=== PATIENT | female | born 1935 | race Caucasian/White ===

== ENCOUNTER 2016-12-13 10:30 | Inpatient (IN) | payer MEDICARE ==
--- NOTE | 2016-12-13 10:33 | EDM.PDOC ---
ED HPI GENERAL MEDICAL PROBLEM - General Chief Complaint: Respiratory Problem Stated Complaint: NOT FEELING WELL Time Seen by Provider: 12/13/16 10:31 Source of Information: Reports: Patient, EMS, Old Records, RN, RN Notes Reviewed History Limitations: Reports: No Limitations - History of Present Illness INITIAL COMMENTS - FREE TEXT/NARRATIVE: Arrives from home by ambulance with c/o shortness of breath and cough which has been worsening for the past few days. Denies fever or chills, chest pain, or edema. Pt reports that she has been using home oxygen and nebulizer tx's as prescribed, but has become too weak to walk across the room without shortness of breath. Onset: Gradual Duration: Day(s): (3-4) Location: Reports: Chest Severity: Severe Improves with: Reports: None Worsens with: Reports: None Associated Symptoms: Reports: No Other Symptoms Treatments [employer]ACHINE: Reports: Breathing Treatments, Oxygen - Related Data Allergies Allergy/AdvReac Type Severity Reaction Status Date / Time No Known Allergies Allergy Verified 08/12/15 11:06 Home Meds: Home Meds Albuterol/Ipratropium [DuoNeb 3.0-0.5 MG/3 ML] 3 ml NEB QID 08/12/15 [History] Lutein/Minerals/Vit A,C & E [Ocuvite] 1 tab PO DAILY 08/12/15 [History] Multivits,Ca,Minerals/Iron/FA [One-A-Day Women's] 1 tab PO DAILY 08/12/15 [ History] Tamoxifen [Nolvadex] 20 mg PO DAILY 08/12/15 [History] predniSONE [Prednisone] 2.5 mg PO DAILY 08/12/15 [History] predniSONE [Prednisone] 10 mg PO DAILY #21 tablet 08/16/15 [Rx] Past Medical History HEENT History: Reports: Cataract, Impaired Vision Other HEENT History: wears glasses Cardiovascular History: Reports: None Respiratory History: Reports: COPD, SOB Other Respiratory History: wears O2 all the time Gastrointestinal History: Reports: None Genitourinary History: Reports: None 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 Musculoskeletal History: Reports: None Neurological History: Reports: None Psychiatric History: Reports: None Endocrine/Metabolic History: Reports: None Hematologic History: Reports: None Immunologic History: Reports: None Oncologic (Cancer) History: Reports: Breast Other Oncologic History: left breast Dermatologic History: Reports: None - Infectious Disease History Infectious Disease History: Reports: Chicken Pox, Measles, Mumps - Past Surgical History Female Surgical History: Reports: Breast Biopsy Social & Family History - Family History Cardiac: Reports: CAD Endocrine/Metabolic: Reports: Diabetes, type II - Tobacco Use Smoking Status *Q: Former Smoker Years of Tobacco use: 30 Packs/Tins Daily: 1 Used Tobacco, but Quit: Yes Month Tobacco Last Used: april Second Hand Smoke Exposure: No - Recreational Drug Use Recreational Drug Use: No - Living Situation & Occupation Living situation: Reports: , Alone Occupation: Retired ED ROS GENERAL - Review of Systems Review Of Systems: ROS reveals no pertinent complaints other than HPI. ED EXAM, GENERAL - Physical Exam Exam: See Below Exam Limited By: No Limitations General Appearance: Alert Eye Exam: Bilateral Eye: Normal Inspection Ears: Hearing Grossly Normal Nose: Normal Inspection Throat/Mouth: Normal Voice, No Airway Compromise Head: Atraumatic, Normocephalic Neck: Normal Inspection, Supple, Non-Tender, Full Range of Motion Respiratory/Chest: No Respiratory Distress, No Accessory Muscle Use, Decreased Breath Sounds, Crackles, Wheezing Cardiovascular: Regular Rate, Rhythm, No Edema, No Murmur, Tachycardia GI/Abdominal: Normal Bowel Sounds, Soft, Non-Tender, No Distention Back Exam: Normal Inspection Extremities: Normal Inspection, Normal Range of Motion, Non-Tender, Normal Capillary Refill, No Pedal Edema Neurological: Alert, Oriented, Normal Cognition, No Motor/Sensory Deficits Psychiatric: Normal Affect, Normal Mood Skin Exam: Warm, Dry, Intact, Normal Color, No Rash EKG INTERPRETATION EKG Date: 12/13/16 Time: 10:34 Rhythm: Other (Sinus tach) Rate (Beats/Min): 112 [place]: Normal P-Wave: Present QRS: Normal ST-T: Depressed (minimal depression in lateral leads) QT: Normal Comparison: No Change (compared to 08/12/15.) Course - Vital Signs Last Recorded V/S: Last Vital Signs Temp 36.8 C 12/13/16 10:36 Pulse 110 H 12/13/16 10:36 Resp 20 12/13/16 10:36 BP 156/48 H 12/13/16 10:36 Pulse Ox 93 L 12/13/16 10:36 - Orders/Labs/Meds Orders: Active Orders 24 hr Category Date Time Status EKG 12 Lead [EKG Documentation Completion] [RC] STAT Care 12/13/16 10:39 Active Peripheral IV Care [RC] . DIRECTED Care 12/13/16 10:40 Active RT Aerosol Therapy [RC] ASDIRECTED Care 12/13/16 10:42 Active Chest 2V [CR] Stat Exams 12/13/16 10:40 Taken CULTURE BLOOD [BC] Stat Lab 12/13/16 10:58 Received CULTURE BLOOD [BC] Stat Lab 12/13/16 11:14 Results UA W/MICROSCOPIC [URIN] Stat Lab 12/13/16 10:39 Uncollected Blood Culture x2 Reflex Set [OM.PC] Stat Oth 12/13/16 10:39 Ordered Peripheral IV Insertion Adult [OM.PC] Stat Oth 12/13/16 10:39 Ordered RT Supplemental Oxygen Titration [RESPCARE] Stat Oth 12/13/16 10:39 Active Labs: Laboratory Tests 12/13/16 12/13/16 12/13/16 Range/Units 10:58 11:14 11:14 WBC 9.9 (5.0-10.0) 10^3/uL RBC 4.15 L (4.2-5.4) 10^6/uL Hgb 13.2 (12.0-16.0) g/dL Hct 40.6 (37.0-47.0) % MCV 97.8 (80-100) fL MCH 31.8 (27.0-34.0) pg MCHC 32.5 L (33.0-35.0) g/dL Plt Count 254 (150-450) 10^3/uL Neut % (Auto) 61.9 (42.2-75.2) % Lymph % (Auto) 23.5 (20.5-50.1) % [place] % (Auto) 10.8 H (2-8) % Eos % (Auto) 3.5 H (1.0-3.0) % Baso % (Auto) 0.3 (0.0-1.0) % Sodium 138 (135-145) mmol/L Potassium 4.3 (3.6-5.0) mmol/L Chloride 97 L (101-111) mmol/L Carbon Dioxide 29.0 (21.0-31.0) mmol/L Anion Gap 16.3 BUN 11 (7-18) mg/dL Creatinine 0.7 (0.6-1.3) mg/dL Est Cr Clr Drug Dosing 48.37 mL/min Estimated GFR (MDRD) > 60 BUN/Creatinine Ratio 15.71 Glucose 125 H (74-105) mg/dL Lactic Acid 1.1 (0.5-2.2) mmol/L Calcium 8.7 (8.4-10.2) mg/dl Total Bilirubin 0.4 (0.2-1.0) mg/dL AST 27 (10-42) IU/L ALT 12 (10-60) IU/L Alkaline Phosphatase 70 (42-121) IU/L Troponin I 0.02 (0.00-0.02) ng/ml B-Natriuretic Peptide 43 (0-100) pg/ml Total Protein 7.3 (6.7-8.2) g/dl Albumin 3.9 (3.2-5.5) g/dl Globulin 3.4 Albumin/Globulin Ratio 1.15 Meds: Medications Discontinued Medications Generic Name Dose Route Start Last Admin Trade Name Freq PRN Reason Stop Dose Admin Albuterol/Ipratropium 3 ml 12/13/16 10:42 12/13/16 10:52 Duoneb 3.0-0.5 Mg/3 Ml NEB 12/13/16 10:43 3 ml ONETIME ONE Administration Methylprednisolone Sodium Succinate 125 mg 12/13/16 10:42 12/13/16 10:47 Solu-Medrol IVPUSH 12/13/16 10:43 125 mg ONETIME ONE Administration Ondansetron HCl 4 mg 12/13/16 10:56 12/13/16 11:01 Zofran IV 12/13/16 10:57 4 mg ONETIME ONE Administration Sodium Chloride 10 ml 12/13/16 10:38 12/13/16 10:48 Saline Flush FLUSH 10 ml ASDIRECTED PRN Administration Keep Vein Open - Radiology Interpretation Free Text/Narrative:: CXR: no infiltrates, large lung volumes, flattened diaphragms; see Rad. report. Departure - Departure Time of Disposition: 12:14 (admit to Dr. Gregory) Disposition: Admitted As Inpatient 67 Condition: Serious Clinical Impression: Acute exacerbation of chronic obstructive pulmonary disease (COPD), Hypoxia - Discharge Information Forms: ED Department Discharge - My Orders Last 24 Hours: My Active Orders 12/13/16 10:39 EKG 12 Lead [EKG Documentation Completion] [RC] STAT UA W/MICROSCOPIC [URIN] Stat Blood Culture x2 Reflex Set [OM.PC] Stat Peripheral IV Insertion Adult [OM.PC] Stat RT Supplemental Oxygen Titration [RESPCARE] Stat 12/13/16 10:40 Peripheral IV Care [RC] . DIRECTED Chest 2V [CR] Stat 12/13/16 10:42 RT Aerosol Therapy [RC] ASDIRECTED 12/13/16 10:58 CULTURE BLOOD [BC] Stat 12/13/16 11:14 CULTURE BLOOD [BC] Stat - Assessment/Plan Last 24 Hours: My Active Orders 12/13/16 10:39 EKG 12 Lead [EKG Documentation Completion] [RC] STAT UA W/MICROSCOPIC [URIN] Stat Blood Culture x2 Reflex Set [OM.PC] Stat Peripheral IV Insertion Adult [OM.PC] Stat RT Supplemental Oxygen Titration [RESPCARE] Stat 12/13/16 10:40 Peripheral IV Care [RC] . DIRECTED Chest 2V [CR] Stat 12/13/16 10:42 RT Aerosol Therapy [RC] ASDIRECTED 12/13/16 10:58 CULTURE BLOOD [BC] Stat 12/13/16 11:14 CULTURE BLOOD [BC] Stat
[2016-12-13] MEDS ORDERED: methylPREDNISolone Sodium Succinate 125 MG/2 ML SDV IVPUSH ONE (10:42)
[2016-12-13] MEDS ORDERED: Albuterol/Ipratropium 3.0-0.5 MG/3 ML Neb Soln NEB ONE (10:42)
[2016-12-13] MEDS: Sodium Chloride 0.9% 10 ML Syringe FLUSH PRN ×3 (10:48→15:46)
[2016-12-13] MEDS ORDERED: Ondansetron 4 MG/2 ML SDV IV ONE (10:56)
[2016-12-13 11:40] LABS: CHLORIDE,CL 97 mmol/L (101-111); SODIUM,NA 138 mmol/L (135-145)
[2016-12-13] MEDS ORDERED: Albuterol 0.083% 2.5 MG/3 ML Neb Soln NEB PRN (12:40)
[2016-12-13] MEDS ORDERED: Ondansetron 4 MG Tab.DIS PO PRN (12:42)
[2016-12-13] MEDS ORDERED: Acetaminophen 325 MG Tab PO PRN (12:42)
[2016-12-13] MEDS ORDERED: Docusate Sodium 100 MG Cap PO PRN (12:42)
[2016-12-13] MEDS ORDERED: Polyethylene Glycol 3350 Powder 17 GM Packet PO PRN (12:42)
[2016-12-13] MEDS ORDERED: Sodium Chloride 0.9% 10 ML Syringe FLUSH PRN (12:42)
--- NOTE | 2016-12-13 13:00 | PCM.HP ---
H&P History of Present Illness - General Date of Service: 12/13/16 Admit Problem/Dx: Admission Diagnosis/Problem Admission Diagnosis/Problem Shortness of breath - History of Present Illness Initial Comments - Free Text/Narative: The patient is an 81-year-old lady who has a history of COPD with home oxygen dependency. She has been using to 2l/m nasal cannula oxygen day and night. The patient has a history of breast cancer for which she is receiving Treatment with Dr. Mcpherson. The patient has been feeling increasing gas shortness of breath in the past 2 weeks, shortness of breath is moderate to severe, worse with activity, better with rest. There is associated to cough which mostly chronic. No apparent fever no sputum production. She has air-conditioner in her living room but not in her bedroom. She has no associated leg swelling, no chest pain. - Related Data Allergies/Adverse Reactions: Allergies Allergy/AdvReac Type Severity Reaction Status Date / Time No Known Allergies Allergy Verified 12/13/16 12:46 Home Medications: Home Meds Albuterol/Ipratropium [DuoNeb 3.0-0.5 MG/3 ML] 3 ml NEB QID 08/12/15 [History] Lutein/Minerals/Vit A,C & E [Ocuvite] 1 tab PO DAILY 08/12/15 [History] predniSONE [Prednisone] 2.5 mg PO DAILY 08/12/15 [History] Past Medical History HEENT History: Reports: Cataract, Impaired Vision Other HEENT History: wears glasses Cardiovascular History: Reports: SOB on Exertion Respiratory History: Reports: COPD, Pneumonia, Recurrent, SOB Other Respiratory History: wears O2 all the time Gastrointestinal History: Reports: None Genitourinary History: Reports: None 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: Musculoskeletal History: Reports: None Neurological History: Reports: None Psychiatric History: Reports: None Endocrine/Metabolic History: Reports: None Hematologic History: Reports: Anemia Immunologic History: Reports: None Oncologic (Cancer) History: Reports: Breast Other Oncologic History: left breast Dermatologic History: Reports: None - Infectious Disease History Infectious Disease History: Reports: Chicken Pox, Measles, Mumps - Past Surgical History Head Surgeries/Procedures: Reports: None HEENT Surgical History: Reports: Tonsillectomy Female Surgical History: Reports: Breast Biopsy Social & Family History - Family History Family Medical History: Noncontributory Cardiac: Reports: CAD Endocrine/Metabolic: Reports: Diabetes, type II - Tobacco Use Smoking Status *Q: Former Smoker Years of Tobacco use: 30 Packs/Tins Daily: 1 Used Tobacco, but Quit: Yes Month Tobacco Last Used: april Second Hand Smoke Exposure: No - Caffeine Use Caffeine Use: Reports: Coffee - Recreational Drug Use Recreational Drug Use: No - Living Situation & Occupation Living situation: Reports: , Alone Occupation: Retired H&P Review of Systems - Review of Systems: Review Of Systems: See Below General: Denies: Fever Pulmonary: Reports: Shortness of Breath, Cough. Denies: Wheezing, Pleuritic Chest Pain, Sputum Cardiovascular: Denies: Chest Pain Gastrointestinal: Denies: Abdominal Pain Genitourinary: Denies: Dysuria Exam - Exam Exam: See Below - Vital Signs Vital Signs: Last Vital Signs Temp 36.6 C 12/13/16 12:34 Pulse 119 H 12/13/16 12:34 Resp 20 12/13/16 12:34 BP 145/43 H 12/13/16 12:34 Pulse Ox 96 12/13/16 12:42 Weight: 55.338 kg - Exam Quality Assessment: Supplemental Oxygen (4 L/m via nasal cannula) General: Alert, Oriented Neck: Supple Lungs: Normal Respiratory Effort, Decreased Breath Sounds. No: Rhonchi, Wheezing Cardiovascular: Regular Rate, Regular Rhythm Extremities: No Pedal Edema Skin: Warm, Dry Neuro Extensive - Mental Status: Alert, Oriented x3, Normal Mood/Affect Psychiatric: Alert, Normal Affect, Normal Mood - Patient Data Result Diagrams: 12/13/16 11:14 12/13/16 10:58 Imaging Impressions Last 24 hrs: Chest x-ray per my reading shows no apparent infiltrate or mass. *Q Meaningful Use (ADM) - VTE *Q VTE Criteria *Q: - Stroke *Q Stroke Criteria *Q: - AMI *Q AMI Criteria *Q: - Problem List (1) Acute exacerbation of chronic obstructive pulmonary disease (COPD) SNOMED Code(s): 078890479 ICD Code: J44.1 - CHRONIC OBSTRUCTIVE PULMONARY DISEASE W (ACUTE) EXACERBATION Status: Acute Current Visit: Yes (2) Hypoxia SNOMED Code(s): 400615811, 814397101 ICD Code: R09.02 - HYPOXEMIA Status: Acute Current Visit: Yes Problem List Initiated/Reviewed/Updated: Yes Orders Last 24hrs: Active Orders 24 hr Category Date Time Status Patient Status [ADT] Routine ADT 12/13/16 12:42 Ordered Antiembolic Devices [RC] PER UNIT ROUTINE Care 12/13/16 12:44 Ordered Oxygen Therapy [RC] PRN Care 12/13/16 12:42 Ordered RT Aerosol Therapy [RC] ASDIRECTED Care 12/13/16 12:39 Ordered RT Aerosol Therapy [RC] ASDIRECTED Care 12/13/16 12:40 Ordered Up With Assistance [RC] ASDIRECTED Care 12/13/16 12:42 Ordered VTE/DVT Education [RC] PER UNIT ROUTINE Care 12/13/16 12:42 Ordered Vital Signs [RC] Q4H Care 12/13/16 12:42 Ordered PT Evaluation and Treatment [CONS] Routine Cons 12/13/16 12:40 Ordered Regular Diet [DIET] Diet 12/13/16 Dinner Ordered Acetaminophen [Tylenol] Med 12/13/16 12:42 Ordered 650 mg PO Q4H PRN Albuterol [Proventil Neb Soln] Med 12/13/16 12:40 Ordered 2.5 mg NEB Q4HRRT PRN Albuterol/Ipratropium [DuoNeb 3.0-0.5 MG/3 ML] Med 12/13/16 13:00 Ordered 3 ml NEB QID Azithromycin [Zithromax] 500 mg Med 12/13/16 12:45 Ordered Sodium Chloride 0.9% [Normal Saline] 250 ml IV Q24H Budesonide [Pulmicort] Med 12/13/16 18:00 Ordered 0.5 mg NEB BIDRT Docusate Sodium [Colace] Med 12/13/16 12:42 Ordered 100 mg PO BID PRN Heparin Sodium Med 12/13/16 14:00 Ordered 5,000 units SUBCUT Q8HR Lutein/Minerals/Vit A,C & E [I-Vilma] Med 12/14/16 09:00 Ordered 1 tab PO DAILY Ondansetron [Zofran ODT] Med 12/13/16 12:42 Ordered 4 mg PO Q6H PRN Polyethylene Glycol 3350 [MiraLAX] Med 12/13/16 12:42 Ordered 17 gm PO DAILY PRN Sodium Chloride 0.9% [Saline Flush] Med 12/13/16 12:42 Ordered 10 ml FLUSH ASDIRECTED PRN Tamoxifen [Nolvadex] Med 12/14/16 09:00 Ordered 20 mg PO DAILY Zolpidem [Ambien] Med 12/13/16 12:42 Ordered 5 mg PO BEDTIME PRN methylPREDNISolone Sod Succ [Solu-MEDROL] Med 12/13/16 16:00 Ordered 40 mg IVPUSH Q8H Saline Lock Insert [OM.PC] Routine Oth 12/13/16 12:42 Ordered Sequential Compression Device [OM.PC] Per Unit Routine Oth 12/13/16 12:43 Ordered Resuscitation Status Routine Resus Stat 12/13/16 12:42 Ordered Medication Orders Acetaminophen (Tylenol) 650 mg PO Q4H PRN PRN Reason: Pain (Mild 1-3)/fever Albuterol (Proventil Neb Soln) 2.5 mg NEB Q4HRRT PRN PRN Reason: sob Albuterol/Ipratropium (Duoneb 3.0-0.5 Mg/3 Ml) 3 ml NEB QID RADHA Budesonide (Pulmicort) 0.5 mg NEB BIDRT RADHA Docusate Sodium (Colace) 100 mg PO BID PRN PRN Reason: Constipation Heparin Sodium (Porcine) (Heparin Sodium) 5,000 units SUBCUT Q8HR RADHA Azithromycin 500 mg/ Sodium (Chloride) 250 mls @ 250 mls/hr IV Q24H RADHA Methylprednisolone Sodium Succinate (Solu-Medrol) 40 mg IVPUSH Q8H RADHA Multivitamins/Minerals (I-Vilma) each PO DAILY RADHA Ondansetron HCl (Zofran Odt) 4 mg PO Q6H PRN PRN Reason: nausea, able to take PO Polyethylene Glycol (Miralax) 17 gm PO DAILY PRN PRN Reason: Constipation Sodium Chloride (Saline Flush) 10 ml FLUSH ASDIRECTED PRN PRN Reason: Keep Vein Open Last Admin: 12/13/16 10:48 Dose: 10 ml Sodium Chloride (Saline Flush) 10 ml FLUSH ASDIRECTED PRN PRN Reason: Keep Vein Open Tamoxifen Citrate (Nolvadex) 20 mg PO DAILY RADHA Zolpidem Tartrate (Ambien) 5 mg PO BEDTIME PRN PRN Reason: Sleep Assessment/Plan Comment:: Shortness of breath Increasing, decreased activity tolerance This is most likely due to the patient's COPD This might relate to natural progression of the COPD, possible exacerbating factors of bronchitis We'll supplement oxygen as needed, she might need higher oxygen dose at home. Will treat with IV systemic steroids Start azithromycin for a possible bronchitis. Will add inhaled steroid For now continue frequent DuoNeb nebulizer, try to switch to longer acting versions later If no significant improvement consider CT of the chest to evaluate for metastatic lesions from breast cancer.
--- NOTE | 2016-12-13 13:02 | CR ---
Clinical history: 81-year-old female dyspnea and a cough. Interpretation: Chronic abnormally coarse interstitial pattern and some peribronchial "cuffing" this patient with la rge hiatus hernia incarcerated in the lower middle mediastinum and left lower lobe atelectasis. Normal cardiac silhouette without alveolar edema or dependent new pleural effusion when compared to 12 August 2015 exam. No new lung mass, hilar lymphadenopathy or atelectasis/collapse but suggestion of possible developin g left perihilar pneumonitis. Clinical? Chronic hypertrophic arthritic changes osteopenic spine. Course aortic valvular calcifications. CONCLUSION: Hiatus hernia. Chronic interstitial pattern and possible developing left perihilar pneum onia.
[2016-12-13] MEDS: Heparin Sodium 5,000 Units/ML Vial SUBCUT SCH ×2 (13:33→21:41)
[2016-12-13] MEDS: Azithromycin 500 MG in Sodium Chloride 0.9% 250 ML IV SCH (13:47)
[2016-12-13] MEDS: methylPREDNISolone Sodium Succinate 40 MG/1 ML SDV IVPUSH SCH (15:46)
[2016-12-13] MEDS: Albuterol/Ipratropium 3.0-0.5 MG/3 ML Neb Soln NEB SCH ×2 (16:43→21:40)
[2016-12-13] MEDS: Budesonide 0.5 MG/2 ML Neb Susp NEB SCH (17:00)
[2016-12-14] MEDS: methylPREDNISolone Sodium Succinate 40 MG/1 ML SDV IVPUSH SCH ×4 (00:41→23:59)
[2016-12-14] MEDS: Sodium Chloride 0.9% 10 ML Syringe FLUSH PRN ×2 (00:42→23:59)
[2016-12-14] MEDS: Heparin Sodium 5,000 Units/ML Vial SUBCUT SCH ×3 (06:27→21:35)
[2016-12-14] MEDS: Albuterol/Ipratropium 3.0-0.5 MG/3 ML Neb Soln NEB SCH ×4 (07:15→21:32)
[2016-12-14] MEDS: Budesonide 0.5 MG/2 ML Neb Susp NEB SCH ×2 (07:15→17:58)
[2016-12-14] MEDS: Tamoxifen 10 MG Tab PO SCH (09:31)
[2016-12-14] MEDS: Lutein/Minerals/Vit A,C & E Tab PO SCH (09:31)
--- NOTE | 2016-12-14 11:22 | PCM.PN ---
- General Info Date of Service: 12/14/16 Admission Dx/Problem (Free Text): Admission Diagnosis/Problem Admission Diagnosis/Problem Shortness of breath Subjective Update: Feeling better, still shortness of breath but she feels that the nebulizers are helping. She is on 2 L/m nasal cannula oxygen at home, she has been on 3 here. She has cough, no associated sputum. No associated fever. No chest pain. - Review of Systems General: Reports: Weakness. Denies: Fever Pulmonary: Reports: Shortness of Breath Cardiovascular: Denies: Chest Pain Gastrointestinal: Denies: Abdominal Pain Genitourinary: Denies: Dysuria - Patient Data Vitals - Most Recent: Last Vital Signs Temp 36.4 C 12/14/16 11:00 Pulse 105 H 12/14/16 11:00 Resp 20 12/14/16 11:00 BP 145/51 H 12/14/16 11:00 Pulse Ox 92 L 12/14/16 11:00 Weight - Most Recent: 55.338 kg I&O - Last 24 Hours: Intake & Output 12/13/16 12/14/16 12/14/16 22:59 06:59 14:59 Intake Total 210 300 Output Total 100 Balance 210 200 Lab Results Last 24 Hours: Laboratory Results - last 24 hr 12/13/16 Range/Units 14:10 Urine Color Yellow (YELLOW) Urine Appearance Cloudy (CLEAR) Urine pH 6.5 (5.0-9.0) Ur Specific Purcell 1.015 (1.005-1.030) Urine Protein 30 H (NEGATIVE) Urine Glucose (UA) Negative (NEGATIVE) Urine Ketones 15 H (NEGATIVE) Urine Occult Blood Negative (NEGATIVE) Urine Nitrite Negative (NEGATIVE) Urine Bilirubin Negative (NEGATIVE) Urine Urobilinogen 0.2 (0.2-1.0) mg/dL Ur Leukocyte Esterase Large H (NEGATIVE) Urine RBC 0-5 /HPF Urine WBC 10-20 H (0-5/HPF) /HPF Ur Epithelial Cells Moderate H /HPF Urine Bacteria Rare (0-FEW/HPF) /HPF Urine Mucus Moderate H /LPF Med Orders - Current: Current Medications Acetaminophen (Tylenol) 650 mg PO Q4H PRN PRN Reason: Pain (Mild 1-3)/fever Albuterol (Proventil Neb Soln) 2.5 mg NEB Q4HRRT PRN PRN Reason: sob Albuterol/Ipratropium (Duoneb 3.0-0.5 Mg/3 Ml) 3 ml NEB QIDRT [facility] Last Admin: 12/14/16 07:15 Dose: 3 ml Budesonide (Pulmicort) 0.5 mg NEB BIDRT [facility] Last Admin: 12/14/16 07:15 Dose: 0.5 mg Docusate Sodium (Colace) 100 mg PO BID PRN PRN Reason: Constipation Heparin Sodium (Porcine) (Heparin Sodium) 5,000 units SUBCUT Q8HR [facility] Last Admin: 12/14/16 06:27 Dose: 5,000 units Azithromycin 500 mg/ Sodium (Chloride) 250 mls @ 250 mls/hr IV Q24H [facility] Last Admin: 12/13/16 13:47 Dose: 250 mls/hr Methylprednisolone Sodium Succinate (Solu-Medrol) 40 mg IVPUSH Q8H [facility] Last Admin: 12/14/16 09:31 Dose: 40 mg Multivitamins/Minerals (I-Vilma) 1 each PO DAILY [facility] Last Admin: 12/14/16 09:31 Dose: 1 each Ondansetron HCl (Zofran Odt) 4 mg PO Q6H PRN PRN Reason: nausea, able to take PO Polyethylene Glycol (Miralax) 17 gm PO DAILY PRN PRN Reason: Constipation Sodium Chloride (Saline Flush) 10 ml FLUSH ASDIRECTED PRN PRN Reason: Keep Vein Open Last Admin: 12/14/16 00:42 Dose: 10 ml Tamoxifen Citrate (Nolvadex) 20 mg PO DAILY [facility] Last Admin: 12/14/16 09:31 Dose: 20 mg Zolpidem Tartrate (Ambien) 5 mg PO BEDTIME PRN PRN Reason: Sleep Discontinued Medications Albuterol/Ipratropium (Duoneb 3.0-0.5 Mg/3 Ml) 3 ml NEB ONETIME ONE Stop: 12/13/16 10:43 Last Admin: 12/13/16 10:52 Dose: 3 ml Methylprednisolone Sodium Succinate (Solu-Medrol) 125 mg IVPUSH ONETIME ONE Stop: 12/13/16 10:43 Last Admin: 12/13/16 10:47 Dose: 125 mg Ondansetron HCl (Zofran) 4 mg IV ONETIME ONE Stop: 12/13/16 10:57 Last Admin: 12/13/16 11:01 Dose: 4 mg Sodium Chloride (Saline Flush) 10 ml FLUSH ASDIRECTED PRN PRN Reason: Keep Vein Open - Exam Quality Assessment: Supplemental Oxygen General: Alert, Oriented Neck: Supple Lungs: Clear to Auscultation Cardiovascular: Regular Rate, Regular Rhythm GI/Abdominal Exam: Normal Bowel Sounds, Soft, Non-Tender Extremities: Normal Inspection, No Pedal Edema - Problem List & Annotations (1) Acute exacerbation of chronic obstructive pulmonary disease (COPD) SNOMED Code(s): 686022023 Code(s): J44.1 - CHRONIC OBSTRUCTIVE PULMONARY DISEASE W (ACUTE) EXACERBATION Status: Acute Current Visit: Yes (2) Hypoxia SNOMED Code(s): 554693707, 588126760 Code(s): R09.02 - HYPOXEMIA Status: Acute Current Visit: Yes - Problem List Review Problem List Initiated/Reviewed/Updated: Yes - Plan Plan:: 1. Shortness of breath with chronic hypoxemic respiratory failure This is most likely due to the patient's COPD This might relate to natural progression of the COPD, possible exacerbating factors of bronchitis We'll supplement oxygen as needed, she might need higher oxygen dose at home. Started on IV systemic steroids Started azithromycin for a possible bronchitis. Started on inhaled steroid For now continue frequent DuoNeb nebulizer, try to switch to longer acting versions later If no significant improvement consider CT of the chest to evaluate for metastatic lesions from breast cancer. 2. DVT prophylaxis with subcutaneous heparin
[2016-12-14] MEDS: Azithromycin 500 MG in Sodium Chloride 0.9% 250 ML IV SCH (13:22)
[2016-12-15] MEDS: Heparin Sodium 5,000 Units/ML Vial SUBCUT SCH ×3 (05:25→21:40)
[2016-12-15] MEDS: Albuterol/Ipratropium 3.0-0.5 MG/3 ML Neb Soln NEB SCH ×4 (07:14→21:40)
[2016-12-15] MEDS: Budesonide 0.5 MG/2 ML Neb Susp NEB SCH ×2 (07:14→17:50)
[2016-12-15] MEDS: Sodium Chloride 0.9% 10 ML Syringe FLUSH PRN ×2 (07:39→17:50)
[2016-12-15] MEDS: methylPREDNISolone Sodium Succinate 40 MG/1 ML SDV IVPUSH SCH ×2 (07:39→17:50)
[2016-12-15] MEDS: Tamoxifen 10 MG Tab PO SCH (09:08)
[2016-12-15] MEDS: Lutein/Minerals/Vit A,C & E Tab PO SCH (09:08)
--- NOTE | 2016-12-15 11:31 | PCM.PN ---
- General Info Date of Service: 12/15/16 Admission Dx/Problem (Free Text): Admission Diagnosis/Problem Admission Diagnosis/Problem Shortness of breath Subjective Update: Feeling better, still moderate shortness of breath but she feels that the nebulizers are helping. She is on 2 L/m nasal cannula oxygen at home, she has been on 3 l/min here. She has cough, no associated sputum. No associated fever. No chest pain. no abd pain, no diarrhea - Review of Systems General: Denies: Fever Pulmonary: Reports: Shortness of Breath, Cough. Denies: Pleuritic Chest Pain, Sputum Cardiovascular: Denies: Chest Pain Gastrointestinal: Denies: Abdominal Pain Genitourinary: Denies: Dysuria - Patient Data Vitals - Most Recent: Last Vital Signs Temp 36.1 C 12/15/16 08:34 Pulse 89 12/15/16 08:34 Resp 20 12/15/16 08:34 BP 131/47 L 12/15/16 08:34 Pulse Ox 99 12/15/16 08:34 Weight - Most Recent: 55.338 kg I&O - Last 24 Hours: Intake & Output 12/14/16 12/15/16 12/15/16 22:59 06:59 14:59 Intake Total 373 250 Balance 373 250 Med Orders - Current: Current Medications Acetaminophen (Tylenol) 650 mg PO Q4H PRN PRN Reason: Pain (Mild 1-3)/fever Last Admin: 12/14/16 13:52 Dose: 650 mg Albuterol (Proventil Neb Soln) 2.5 mg NEB Q4HRRT PRN PRN Reason: sob Albuterol/Ipratropium (Duoneb 3.0-0.5 Mg/3 Ml) 3 ml NEB QIDRT [facility] Last Admin: 12/15/16 07:14 Dose: 3 ml Budesonide (Pulmicort) 0.5 mg NEB BIDRT [facility] Last Admin: 12/15/16 07:14 Dose: 0.5 mg Docusate Sodium (Colace) 100 mg PO BID PRN PRN Reason: Constipation Last Admin: 12/15/16 09:10 Dose: 100 mg Heparin Sodium (Porcine) (Heparin Sodium) 5,000 units SUBCUT Q8HR [facility] Last Admin: 12/15/16 05:25 Dose: 5,000 units Methylprednisolone Sodium Succinate (Solu-Medrol) 40 mg IVPUSH Q12H [facility] Multivitamins/Minerals (I-Vilma) 1 each PO DAILY [facility] Last Admin: 12/15/16 09:08 Dose: 1 each Ondansetron HCl (Zofran Odt) 4 mg PO Q6H PRN PRN Reason: nausea, able to take PO Polyethylene Glycol (Miralax) 17 gm PO DAILY PRN PRN Reason: Constipation Sodium Chloride (Saline Flush) 10 ml FLUSH ASDIRECTED PRN PRN Reason: Keep Vein Open Last Admin: 12/15/16 07:39 Dose: 10 ml Zolpidem Tartrate (Ambien) 5 mg PO BEDTIME PRN PRN Reason: Sleep Discontinued Medications Albuterol/Ipratropium (Duoneb 3.0-0.5 Mg/3 Ml) 3 ml NEB ONETIME ONE Stop: 12/13/16 10:43 Last Admin: 12/13/16 10:52 Dose: 3 ml Azithromycin 500 mg/ Sodium (Chloride) 250 mls @ 250 mls/hr IV Q24H [facility] Last Admin: 12/14/16 13:22 Dose: 250 mls/hr Methylprednisolone Sodium Succinate (Solu-Medrol) 125 mg IVPUSH ONETIME ONE Stop: 12/13/16 10:43 Last Admin: 12/13/16 10:47 Dose: 125 mg Methylprednisolone Sodium Succinate (Solu-Medrol) 40 mg IVPUSH Q8H [facility] Last Admin: 12/15/16 07:39 Dose: 40 mg Ondansetron HCl (Zofran) 4 mg IV ONETIME ONE Stop: 12/13/16 10:57 Last Admin: 12/13/16 11:01 Dose: 4 mg Sodium Chloride (Saline Flush) 10 ml FLUSH ASDIRECTED PRN PRN Reason: Keep Vein Open Tamoxifen Citrate (Nolvadex) 20 mg PO DAILY [facility] Last Admin: 12/15/16 09:08 Dose: 20 mg - Exam Quality Assessment: Supplemental Oxygen General: Alert, Oriented Neck: Supple Lungs: Normal Respiratory Effort, Decreased Breath Sounds. No: Wheezing Cardiovascular: Regular Rhythm, Murmurs (syst) Extremities: Normal Inspection, No Pedal Edema - Problem List & Annotations (1) Acute exacerbation of chronic obstructive pulmonary disease (COPD) SNOMED Code(s): 908133089 Code(s): J44.1 - CHRONIC OBSTRUCTIVE PULMONARY DISEASE W (ACUTE) EXACERBATION Status: Acute Current Visit: Yes (2) Hypoxia SNOMED Code(s): 664458405, 469861253 Code(s): R09.02 - HYPOXEMIA Status: Acute Current Visit: Yes - Problem List Review Problem List Initiated/Reviewed/Updated: Yes - My Orders Last 24 Hours: My Active Orders 12/15/16 11:27 CULTURE URINE [RM] Routine 12/15/16 14:00 Amoxicillin/Clavulanate K [Augmentin 500 MG\125 MG] 1 tab PO Q8HR 12/15/16 18:00 methylPREDNISolone Sod Succ [Solu-MEDROL] 40 mg IVPUSH Q12H 12/16/16 05:15 BASIC METABOLIC PANEL,BMP [CHEM] AM CBC WITH AUTO DIFF [HEME] AM - Plan Plan:: 1. Shortness of breath with chronic hypoxemic respiratory failure This is most likely due to the patient's COPD This might relate to natural progression of the COPD, possible exacerbating factors of bronchitis We'll supplement oxygen as needed, she might need higher oxygen dose at home. taper IV systemic steroids to BID Started azithromycin for a possible bronchitis - appears to have UTI - switch to PO Augmentin Started on inhaled steroid For now continue frequent DuoNeb nebulizer, try to switch to longer acting versions later If no significant improvement consider CT of the chest to evaluate for metastatic lesions from breast cancer. 2. DVT prophylaxis with subcutaneous heparin
[2016-12-15] MEDS: Amoxicillin/Clavulanate K 500-125 MG Tab PO SCH ×2 (13:24→21:40)
[2016-12-16] MEDS: Amoxicillin/Clavulanate K 500-125 MG Tab PO SCH ×3 (05:42→21:22)
[2016-12-16] MEDS: Heparin Sodium 5,000 Units/ML Vial SUBCUT SCH (05:43)
[2016-12-16] MEDS: Sodium Chloride 0.9% 10 ML Syringe FLUSH PRN (05:43)
[2016-12-16] MEDS: methylPREDNISolone Sodium Succinate 40 MG/1 ML SDV IVPUSH SCH (05:43)
[2016-12-16] MEDS: Budesonide 0.5 MG/2 ML Neb Susp NEB SCH ×2 (06:42→17:57)
[2016-12-16] MEDS: Albuterol/Ipratropium 3.0-0.5 MG/3 ML Neb Soln NEB SCH ×4 (06:42→21:21)
[2016-12-16 07:24] LABS: CHLORIDE,CL 103 mmol/L (101-111); SODIUM,NA 143 mmol/L (135-145)
[2016-12-16] MEDS: Lutein/Minerals/Vit A,C & E Tab PO SCH (09:00)
[2016-12-16] MEDS: Docusate Sodium 100 MG Cap PO SCH ×2 (09:00→21:23)
--- NOTE | 2016-12-16 10:10 | PCM.PN ---
- General Info Date of Service: 12/16/16 Admission Dx/Problem (Free Text): Admission Diagnosis/Problem Admission Diagnosis/Problem Shortness of breath Subjective Update: Feeling well, still moderate shortness of breath but she feels that the nebulizers are helping, improved since admission. She is on 2 L/m nasal cannula oxygen at home, she has been on 3 l/min here. She is feeling better with that rate. She has minimal cough, no associated sputum. No associated fever. No chest pain. no abd pain, no diarrhea - Review of Systems General: Denies: Fever, Weakness Pulmonary: Reports: Shortness of Breath, Cough. Denies: Hemoptysis Cardiovascular: Denies: Chest Pain Gastrointestinal: Denies: Abdominal Pain Genitourinary: Denies: Dysuria Neurological: Denies: Confusion - Patient Data Vitals - Most Recent: Last Vital Signs Temp 36.6 C 12/16/16 08:23 Pulse 95 12/16/16 08:23 Resp 20 12/16/16 08:23 BP 123/48 L 12/16/16 08:23 Pulse Ox 98 12/16/16 08:23 Weight - Most Recent: 55.338 kg I&O - Last 24 Hours: Intake & Output 12/15/16 12/16/16 12/16/16 22:59 06:59 14:59 Intake Total 470 750 Balance 470 750 Lab Results Last 24 Hours: Laboratory Results - last 24 hr 12/16/16 12/16/16 Range/Units 06:30 06:30 WBC 13.8 H (5.0-10.0) 10^3/uL RBC 3.53 L (4.2-5.4) 10^6/uL Hgb 11.3 L (12.0-16.0) g/dL Hct 35.4 L (37.0-47.0) % MCV 100.3 H (80-100) fL MCH 32.0 (27.0-34.0) pg MCHC 31.9 L (33.0-35.0) g/dL Plt Count 258 (150-450) 10^3/uL Neut % (Auto) 78.0 H (42.2-75.2) % Lymph % (Auto) 13.4 L (20.5-50.1) % [place] % (Auto) 8.4 H (2-8) % Eos % (Auto) 0.1 L (1.0-3.0) % Baso % (Auto) 0.1 (0.0-1.0) % Sodium 143 (135-145) mmol/L Potassium 4.7 (3.6-5.0) mmol/L Chloride 103 (101-111) mmol/L Carbon Dioxide 31.0 (21.0-31.0) mmol/L Anion Gap 13.7 BUN 20 H (7-18) mg/dL Creatinine 0.5 L (0.6-1.3) mg/dL Est Cr Clr Drug Dosing 70.98 mL/min Estimated GFR (MDRD) > 60 Glucose 81 (74-105) mg/dL Calcium 7.6 L (8.4-10.2) mg/dl Mika Results Last 24 Hours: Microbiology 12/15/16 15:55 Urine Culture - Preliminary Urine, Voided Med Orders - Current: Current Medications Acetaminophen (Tylenol) 650 mg PO Q4H PRN PRN Reason: Pain (Mild 1-3)/fever Last Admin: 12/14/16 13:52 Dose: 650 mg Albuterol (Proventil Neb Soln) 2.5 mg NEB Q4HRRT PRN PRN Reason: sob Albuterol/Ipratropium (Duoneb 3.0-0.5 Mg/3 Ml) 3 ml NEB QIDRT [facility] Last Admin: 12/16/16 06:42 Dose: 3 ml Amoxicillin/Clavulanate Potassium (Augmentin 500 Mg\125 Mg) 1 tab PO Q8HR [facility] Last Admin: 12/16/16 05:42 Dose: 1 tab Budesonide (Pulmicort) 0.5 mg NEB BIDRT [facility] Last Admin: 12/16/16 06:42 Dose: 0.5 mg Docusate Sodium (Colace) 100 mg PO BID [facility] Last Admin: 12/16/16 09:00 Dose: Not Given Heparin Sodium (Porcine) (Heparin Sodium) 5,000 units SUBCUT Q8HR [facility] Last Admin: 12/16/16 05:43 Dose: 5,000 units Methylprednisolone Sodium Succinate (Solu-Medrol) 40 mg IVPUSH Q12H [facility] Last Admin: 12/16/16 05:43 Dose: 40 mg Multivitamins/Minerals (I-Vilma) 1 each PO DAILY [facility] Last Admin: 12/16/16 09:00 Dose: 1 each Ondansetron HCl (Zofran Odt) 4 mg PO Q6H PRN PRN Reason: nausea, able to take PO Polyethylene Glycol (Miralax) 17 gm PO DAILY PRN PRN Reason: Constipation Sodium Chloride (Saline Flush) 10 ml FLUSH ASDIRECTED PRN PRN Reason: Keep Vein Open Last Admin: 12/16/16 05:43 Dose: 10 ml Zolpidem Tartrate (Ambien) 5 mg PO BEDTIME PRN PRN Reason: Sleep Discontinued Medications Albuterol/Ipratropium (Duoneb 3.0-0.5 Mg/3 Ml) 3 ml NEB ONETIME ONE Stop: 12/13/16 10:43 Last Admin: 12/13/16 10:52 Dose: 3 ml Docusate Sodium (Colace) 100 mg PO BID PRN PRN Reason: Constipation Last Admin: 12/15/16 09:10 Dose: 100 mg Azithromycin 500 mg/ Sodium (Chloride) 250 mls @ 250 mls/hr IV Q24H [facility] Last Admin: 12/14/16 13:22 Dose: 250 mls/hr Methylprednisolone Sodium Succinate (Solu-Medrol) 125 mg IVPUSH ONETIME ONE Stop: 12/13/16 10:43 Last Admin: 12/13/16 10:47 Dose: 125 mg Methylprednisolone Sodium Succinate (Solu-Medrol) 40 mg IVPUSH Q8H [facility] Last Admin: 12/15/16 07:39 Dose: 40 mg Ondansetron HCl (Zofran) 4 mg IV ONETIME ONE Stop: 12/13/16 10:57 Last Admin: 12/13/16 11:01 Dose: 4 mg Sodium Chloride (Saline Flush) 10 ml FLUSH ASDIRECTED PRN PRN Reason: Keep Vein Open Tamoxifen Citrate (Nolvadex) 20 mg PO DAILY [facility] Last Admin: 12/15/16 09:08 Dose: 20 mg - Exam General: Alert, Oriented Neck: Supple Lungs: Normal Respiratory Effort, Decreased Breath Sounds Extremities: No Pedal Edema - Problem List & Annotations (1) Acute exacerbation of chronic obstructive pulmonary disease (COPD) SNOMED Code(s): 455432173 Code(s): J44.1 - CHRONIC OBSTRUCTIVE PULMONARY DISEASE W (ACUTE) EXACERBATION Status: Acute Current Visit: Yes (2) Hypoxia SNOMED Code(s): 019668611, 829369885 Code(s): R09.02 - HYPOXEMIA Status: Acute Current Visit: Yes - Problem List Review Problem List Initiated/Reviewed/Updated: Yes - My Orders Last 24 Hours: My Active Orders 12/15/16 14:00 Amoxicillin/Clavulanate K [Augmentin 500 MG\125 MG] 1 tab PO Q8HR 12/15/16 15:55 CULTURE URINE [RM] Routine 12/15/16 18:00 methylPREDNISolone Sod Succ [Solu-MEDROL] 40 mg IVPUSH Q12H 12/16/16 09:00 Docusate Sodium [Colace] 100 mg PO BID - Plan Plan:: 1. Shortness of breath with chronic hypoxemic respiratory failure This is most likely due to the patient's COPD This might relate to natural progression of the COPD, possible exacerbating factors of bronchitis We'll supplement oxygen as needed, she might need higher oxygen dose at home. taper IV systemic steroids to daily - leukocytosis is likely related to the steroids Started azithromycin for a possible bronchitis - switched to PO Augmentin Possible urinary tract infection but urine culture appears negative for now Started on inhaled steroid For now continue frequent DuoNeb nebulizer, try to switch to longer acting versions later consider CT of the chest to evaluate for metastatic lesions from breast cancer - will have appointment with oncology next week. 2. DVT prophylaxis with subcutaneous heparin
--- NOTE | 2016-12-16 10:37 | PCM.SN ---
- Free Text/Narrative Note: developed fresh blood per rectum sha lower gi bleed no abd pain, no n/v likely diverticular bleed she never had a colonoscopy d/w pt rec. to tx. to [facility] for GI eval, possible colonosocpy she would like to wait and see if bleeding stops recheck hgb in AM
[2016-12-16] MEDS: Pantoprazole 40 MG Tab.CR PO SCH (17:23)
[2016-12-17] MEDS: Amoxicillin/Clavulanate K 500-125 MG Tab PO SCH ×3 (05:50→21:55)
[2016-12-17] MEDS: Pantoprazole 40 MG Tab.CR PO SCH ×2 (05:50→17:06)
[2016-12-17] MEDS: Budesonide 0.5 MG/2 ML Neb Susp NEB SCH ×2 (07:14→17:48)
[2016-12-17] MEDS: Albuterol/Ipratropium 3.0-0.5 MG/3 ML Neb Soln NEB SCH ×4 (07:14→21:56)
[2016-12-17] MEDS: predniSONE 20 MG Tab PO SCH (09:46)
[2016-12-17] MEDS: Lutein/Minerals/Vit A,C & E Tab PO SCH (09:47)
[2016-12-17] MEDS: Docusate Sodium 100 MG Cap PO SCH ×2 (10:21→20:57)
--- NOTE | 2016-12-17 11:32 | PCM.PN ---
- General Info Date of Service: 12/17/16 Admission Dx/Problem (Free Text): Admission Diagnosis/Problem Admission Diagnosis/Problem Shortness of breath Subjective Update: Shortness of breath has much improved since admission. Yesterday developed bloody bowel movements. Initially were more frequent and larger amounts of fresh red. Later during the day had more dark smaller amounts. Feels no chest pain, no palpitation. Has been up with physical therapy and felt weaker than before. Never had colonoscopy before. Functional Status: Reports: Pain Controlled - Review of Systems General: Reports: Weakness. Denies: Fever Pulmonary: Reports: Shortness of Breath (Improved) Cardiovascular: Denies: Chest Pain Gastrointestinal: Reports: Other (Fresh blood in stool). Denies: Abdominal Pain Genitourinary: Denies: Dysuria Neurological: Denies: Confusion - Patient Data Vitals - Most Recent: Last Vital Signs Temp 36.1 C 12/17/16 06:55 Pulse 95 12/17/16 07:14 Resp 20 12/17/16 06:55 BP 112/44 L 12/17/16 06:55 Pulse Ox 97 12/17/16 06:55 Weight - Most Recent: 55.338 kg I&O - Last 24 Hours: Intake & Output 12/16/16 12/17/16 12/17/16 22:59 06:59 14:59 Intake Total 350 500 Output Total 200 Balance 350 300 Lab Results Last 24 Hours: Laboratory Results - last 24 hr 12/16/16 12/17/16 Range/Units 15:15 06:20 WBC 11.2 H (5.0-10.0) 10^3/uL RBC 3.46 L (4.2-5.4) 10^6/uL Hgb 11.5 L 11.1 L (12.0-16.0) g/dL Hct 34.8 L (37.0-47.0) % MCV 100.6 H (80-100) fL MCH 32.1 (27.0-34.0) pg MCHC 31.9 L (33.0-35.0) g/dL Plt Count 263 (150-450) 10^3/uL Neut % (Auto) 62.3 (42.2-75.2) % Lymph % (Auto) 24.0 (20.5-50.1) % [place] % (Auto) 10.2 H (2-8) % Eos % (Auto) 3.4 H (1.0-3.0) % Baso % (Auto) 0.1 (0.0-1.0) % Add Manual Diff Yes Neutrophils % (Manual) 63 % Lymphocytes % (Manual) 31 % Monocytes % (Manual) 3 % Eosinophils % (Manual) 3 % Mika Results Last 24 Hours: Microbiology 12/15/16 15:55 Urine Culture - Preliminary Urine, Voided Med Orders - Current: Current Medications Acetaminophen (Tylenol) 650 mg PO Q4H PRN PRN Reason: Pain (Mild 1-3)/fever Last Admin: 12/14/16 13:52 Dose: 650 mg Albuterol (Proventil Neb Soln) 2.5 mg NEB Q4HRRT PRN PRN Reason: sob Last Admin: 12/17/16 05:51 Dose: 2.5 mg Albuterol/Ipratropium (Duoneb 3.0-0.5 Mg/3 Ml) 3 ml NEB QIDRT [facility] Last Admin: 12/17/16 07:14 Dose: Not Given Amoxicillin/Clavulanate Potassium (Augmentin 500 Mg\125 Mg) 1 tab PO Q8HR [facility] Last Admin: 12/17/16 05:50 Dose: 1 tab Budesonide (Pulmicort) 0.5 mg NEB BIDRT [facility] Last Admin: 12/17/16 07:14 Dose: 0.5 mg Docusate Sodium (Colace) 100 mg PO BID [facility] Last Admin: 12/17/16 10:21 Dose: Not Given Multivitamins/Minerals (I-Vilma) 1 each PO DAILY [facility] Last Admin: 12/17/16 09:47 Dose: 1 each Ondansetron HCl (Zofran Odt) 4 mg PO Q6H PRN PRN Reason: nausea, able to take PO Pantoprazole Sodium (Protonix) 40 mg PO BIDAC [facility] Last Admin: 12/17/16 05:50 Dose: 40 mg Polyethylene Glycol (Miralax) 17 gm PO DAILY PRN PRN Reason: Constipation Prednisone (Prednisone) 40 mg PO WITHBREAKFAST [facility] Last Admin: 12/17/16 09:46 Dose: 40 mg Sodium Chloride (Saline Flush) 10 ml FLUSH ASDIRECTED PRN PRN Reason: Keep Vein Open Last Admin: 12/16/16 05:43 Dose: 10 ml Zolpidem Tartrate (Ambien) 5 mg PO BEDTIME PRN PRN Reason: Sleep Discontinued Medications Albuterol/Ipratropium (Duoneb 3.0-0.5 Mg/3 Ml) 3 ml NEB ONETIME ONE Stop: 12/13/16 10:43 Last Admin: 12/13/16 10:52 Dose: 3 ml Docusate Sodium (Colace) 100 mg PO BID PRN PRN Reason: Constipation Last Admin: 12/15/16 09:10 Dose: 100 mg Heparin Sodium (Porcine) (Heparin Sodium) 5,000 units SUBCUT Q8HR [facility] Last Admin: 12/16/16 05:43 Dose: 5,000 units Azithromycin 500 mg/ Sodium (Chloride) 250 mls @ 250 mls/hr IV Q24H [facility] Last Admin: 12/14/16 13:22 Dose: 250 mls/hr Methylprednisolone Sodium Succinate (Solu-Medrol) 125 mg IVPUSH ONETIME ONE Stop: 12/13/16 10:43 Last Admin: 12/13/16 10:47 Dose: 125 mg Methylprednisolone Sodium Succinate (Solu-Medrol) 40 mg IVPUSH Q8H [facility] Last Admin: 12/15/16 07:39 Dose: 40 mg Methylprednisolone Sodium Succinate (Solu-Medrol) 40 mg IVPUSH Q12H [facility] Last Admin: 12/16/16 05:43 Dose: 40 mg Ondansetron HCl (Zofran) 4 mg IV ONETIME ONE Stop: 12/13/16 10:57 Last Admin: 12/13/16 11:01 Dose: 4 mg Sodium Chloride (Saline Flush) 10 ml FLUSH ASDIRECTED PRN PRN Reason: Keep Vein Open Tamoxifen Citrate (Nolvadex) 20 mg PO DAILY [facility] Last Admin: 12/15/16 09:08 Dose: 20 mg - Exam Quality Assessment: Supplemental Oxygen General: Alert, Oriented Neck: Supple Lungs: Normal Respiratory Effort, Decreased Breath Sounds Cardiovascular: Regular Rate, Regular Rhythm GI/Abdominal Exam: Normal Bowel Sounds, Soft, Non-Tender Extremities: No Pedal Edema - Problem List & Annotations (1) Acute exacerbation of chronic obstructive pulmonary disease (COPD) SNOMED Code(s): 740039024 Code(s): J44.1 - CHRONIC OBSTRUCTIVE PULMONARY DISEASE W (ACUTE) EXACERBATION Status: Acute Current Visit: Yes (2) Hypoxia SNOMED Code(s): 565807070, 624962731 Code(s): R09.02 - HYPOXEMIA Status: Acute Current Visit: Yes (3) Lower GI bleed SNOMED Code(s): 26607225 Code(s): K92.2 - GASTROINTESTINAL HEMORRHAGE, UNSPECIFIED Status: Acute Current Visit: Yes - Problem List Review Problem List Initiated/Reviewed/Updated: Yes - My Orders Last 24 Hours: My Active Orders 12/16/16 17:00 Pantoprazole [ProTONIX] 40 mg PO BIDAC 12/17/16 08:00 predniSONE 40 mg PO WITHBREAKFAST 12/18/16 05:15 BASIC METABOLIC PANEL,BMP [CHEM] AM CBC WITH AUTO DIFF [HEME] AM - Plan Plan:: 1. Shortness of breath with chronic hypoxemic respiratory failure This is most likely due to the patient's COPD This might relate to natural progression of the COPD, possible exacerbating factors of bronchitis We'll supplement oxygen as needed, she might need higher oxygen dose at home. taper systemic steroids Started azithromycin for a possible bronchitis - switched to PO Augmentin Started on inhaled steroid For now continue frequent DuoNeb nebulizer, try to switch to longer acting versions later consider CT of the chest to evaluate for metastatic lesions from breast cancer - will have appointment with oncology next week. 2. GI bleed With fresh blood per rectum likely lower GI bleed No associated abdominal pain This might be hemorrhoidal versus diverticular bleed Hemoglobin remained relatively stable. The amount of bloody stool is decreasing. We discussed with the patient and the patient's daughter about options of colonoscopy versus expectant monitoring. The patient never had colonoscopy before. At this point she would like to monitor the bleeding. If there is significant bleeding or continue bleeding is noted that we will transfer to [place] for GI evaluation. If the bleeding seemed to be stopping and patient remains stable and hemoglobin is good consider outpatient colonoscopy. 3. DVT prophylaxis with SCD stop subcutaneous heparin re: GI bleed
[2016-12-17] MEDS: Zolpidem 5 MG Tab PO PRN ×2 (21:56→23:27)
[2016-12-18] MEDS: Budesonide 0.5 MG/2 ML Neb Susp NEB SCH (06:27)
[2016-12-18] MEDS: Amoxicillin/Clavulanate K 500-125 MG Tab PO SCH (06:28)
[2016-12-18] MEDS: Albuterol/Ipratropium 3.0-0.5 MG/3 ML Neb Soln NEB SCH ×2 (06:28→11:08)
[2016-12-18] MEDS: Pantoprazole 40 MG Tab.CR PO SCH (06:28)
[2016-12-18 07:10] LABS: CHLORIDE,CL 104 mmol/L (101-111); SODIUM,NA 142 mmol/L (135-145)
[2016-12-18] MEDS: Docusate Sodium 100 MG Cap PO SCH (08:32)
[2016-12-18] MEDS: Lutein/Minerals/Vit A,C & E Tab PO SCH (08:33)
[2016-12-18] MEDS: predniSONE 20 MG Tab PO SCH (08:33)
--- NOTE | 2016-12-18 10:41 | PCM.DCSUM1 ---
Discharge Summary - Hospital Course Free Text/Narrative:: 1. Shortness of breath with chronic hypoxemic respiratory failure due to acute COPD exacerbation This might relate to natural progression of the COPD, possible exacerbating factors of bronchitis continue oxygen supplement taper systemic steroids Started azithromycin for a possible bronchitis - switched to PO Augmentin Started on inhaled steroid For now continue frequent DuoNeb nebulizer, consider to switch to longer acting versions later consider CT of the chest to evaluate for metastatic lesions from breast cancer - will have appointment with oncology next week. 2. GI bleed With fresh blood per rectum likely lower GI bleed No associated abdominal pain This might be hemorrhoidal versus diverticular bleed Hemoglobin remained stable The amount of bloody stool was decreasing. We discussed with the patient and the patient's daughter about options of colonoscopy versus expectant monitoring. The patient never had colonoscopy before. The bleeding seemed to have stopped suggested outpatient colonoscopy. - Discharge Data Discharge Date: 12/18/16 Discharge Disposition: Home, W Home Health Agency 06 Condition: Good - Discharge Diagnosis/Problem(s) (1) Acute exacerbation of chronic obstructive pulmonary disease (COPD) SNOMED Code(s): 756518136 ICD Code: J44.1 - CHRONIC OBSTRUCTIVE PULMONARY DISEASE W (ACUTE) EXACERBATION Status: Acute Current Visit: Yes (2) Hypoxia SNOMED Code(s): 664157893, 833847822 ICD Code: R09.02 - HYPOXEMIA Status: Acute Current Visit: Yes (3) Lower GI bleed SNOMED Code(s): 07838163 ICD Code: K92.2 - GASTROINTESTINAL HEMORRHAGE, UNSPECIFIED Status: Acute Current Visit: Yes - Patient Instructions Diet: Usual Diet as Tolerated Activity: As Tolerated - Discharge Plan Prescriptions/Med Rec: Amoxicillin/Clavulanate K [Augmentin 500 MG\125 MG] 1 tab PO Q8HR #15 tablet Budesonide [Pulmicort] 0.5 mg NEB BIDRT #60 neb Iron Polysaccharides Complex [Ferrex 150] 150 mg PO DAILY #30 cap Prednisone [IJD: predniSONE] 40 mg PO WITHBREAKFAST #6 tablet Home Medications: Home Meds Albuterol/Ipratropium [DuoNeb 3.0-0.5 MG/3 ML] 3 ml NEB QID 08/12/15 [History] Lutein/Minerals/Vit A,C & E [Ocuvite] 1 tab PO DAILY 08/12/15 [History] predniSONE [Prednisone] 2.5 mg PO DAILY 08/12/15 [History] Amoxicillin/Clavulanate K [Augmentin 500 MG\125 MG] 1 tab PO Q8HR #15 tablet 12/27 [Rx] Budesonide [Pulmicort] 0.5 mg NEB BIDRT #60 neb 12/18/16 [Rx] Iron Polysaccharides Complex [Ferrex 150] 150 mg PO DAILY #30 cap 12/18/16 [Rx] Prednisone [IJD: predniSONE] 40 mg PO WITHBREAKFAST #6 tablet 12/18/16 [Rx] Patient Handouts: Chronic Obstructive Pulmonary Disease Exacerbation, Easy-to- Read Referrals: Amy Gould, UNIT MANAGER [Primary Care Provider] - (in 2-3 days ) - Discharge Summary/Plan Comment DC Time >30 min.: No - Patient Data Vitals - Most Recent: Last Vital Signs Temp 36.3 C 12/18/16 06:57 Pulse 89 12/18/16 06:57 Resp 20 12/18/16 06:57 BP 134/38 L 12/18/16 06:57 Pulse Ox 100 12/18/16 06:57 Weight - Most Recent: 55.338 kg I&O - Last 24 hours: Intake & Output 12/17/16 12/18/16 12/18/16 22:59 06:59 14:59 Intake Total 125 400 Output Total 500 Balance 125 -100 Lab Results - Last 24 hrs: Laboratory Results - last 24 hr 12/18/16 12/18/16 Range/Units 06:23 06:23 WBC 12.9 H (5.0-10.0) 10^3/uL RBC 3.58 L (4.2-5.4) 10^6/uL Hgb 11.4 L (12.0-16.0) g/dL Hct 35.6 L (37.0-47.0) % MCV 99.4 (80-100) fL MCH 31.8 (27.0-34.0) pg MCHC 32.0 L (33.0-35.0) g/dL Plt Count 270 (150-450) 10^3/uL Neut % (Auto) 64.1 (42.2-75.2) % Lymph % (Auto) 23.4 (20.5-50.1) % [place] % (Auto) 9.1 H (2-8) % Eos % (Auto) 3.3 H (1.0-3.0) % Baso % (Auto) 0.1 (0.0-1.0) % Sodium 142 (135-145) mmol/L Potassium 4.4 (3.6-5.0) mmol/L Chloride 104 (101-111) mmol/L Carbon Dioxide 29.0 (21.0-31.0) mmol/L Anion Gap 13.4 BUN 9 (7-18) mg/dL Creatinine 0.5 L (0.6-1.3) mg/dL Est Cr Clr Drug Dosing 70.98 mL/min Estimated GFR (MDRD) > 60 Glucose 86 (74-105) mg/dL Calcium 8.0 L (8.4-10.2) mg/dl KEREN Results - Last 24 hrs: Microbiology 12/15/16 15:55 Urine Culture - Final Urine, Voided Med Orders - Current: Current Medications Acetaminophen (Tylenol) 650 mg PO Q4H PRN PRN Reason: Pain (Mild 1-3)/fever Last Admin: 12/14/16 13:52 Dose: 650 mg Albuterol (Proventil Neb Soln) 2.5 mg NEB Q4HRRT PRN PRN Reason: sob Last Admin: 12/17/16 05:51 Dose: 2.5 mg Albuterol/Ipratropium (Duoneb 3.0-0.5 Mg/3 Ml) 3 ml NEB QIDRT [facility] Last Admin: 12/18/16 06:28 Dose: 3 ml Amoxicillin/Clavulanate Potassium (Augmentin 500 Mg\125 Mg) 1 tab PO Q8HR [facility] Last Admin: 12/18/16 06:28 Dose: 1 tab Budesonide (Pulmicort) 0.5 mg NEB BIDRT [facility] Last Admin: 12/18/16 06:27 Dose: 0.5 mg Docusate Sodium (Colace) 100 mg PO BID [facility] Last Admin: 12/18/16 08:32 Dose: Not Given Multivitamins/Minerals (I-Vilma) 1 each PO DAILY [facility] Last Admin: 12/18/16 08:33 Dose: 1 each Ondansetron HCl (Zofran Odt) 4 mg PO Q6H PRN PRN Reason: nausea, able to take PO Pantoprazole Sodium (Protonix) 40 mg PO BIDAC [facility] Last Admin: 12/18/16 06:28 Dose: 40 mg Polyethylene Glycol (Miralax) 17 gm PO DAILY PRN PRN Reason: Constipation Polysaccharide Iron Complex (Ferrex 150) 150 mg PO DAILY [facility] Prednisone (Prednisone) 40 mg PO WITHBREAKFAST [facility] Last Admin: 12/18/16 08:33 Dose: 40 mg Sodium Chloride (Saline Flush) 10 ml FLUSH ASDIRECTED PRN PRN Reason: Keep Vein Open Last Admin: 12/16/16 05:43 Dose: 10 ml Zolpidem Tartrate (Ambien) 5 mg PO BEDTIME PRN PRN Reason: Sleep Last Admin: 12/17/16 23:27 Dose: 5 mg Discontinued Medications Albuterol/Ipratropium (Duoneb 3.0-0.5 Mg/3 Ml) 3 ml NEB ONETIME ONE Stop: 12/13/16 10:43 Last Admin: 12/13/16 10:52 Dose: 3 ml Docusate Sodium (Colace) 100 mg PO BID PRN PRN Reason: Constipation Last Admin: 12/15/16 09:10 Dose: 100 mg Heparin Sodium (Porcine) (Heparin Sodium) 5,000 units SUBCUT Q8HR [facility] Last Admin: 12/16/16 05:43 Dose: 5,000 units Azithromycin 500 mg/ Sodium (Chloride) 250 mls @ 250 mls/hr IV Q24H [facility] Last Admin: 12/14/16 13:22 Dose: 250 mls/hr Methylprednisolone Sodium Succinate (Solu-Medrol) 125 mg IVPUSH ONETIME ONE Stop: 12/13/16 10:43 Last Admin: 12/13/16 10:47 Dose: 125 mg Methylprednisolone Sodium Succinate (Solu-Medrol) 40 mg IVPUSH Q8H [facility] Last Admin: 12/15/16 07:39 Dose: 40 mg Methylprednisolone Sodium Succinate (Solu-Medrol) 40 mg IVPUSH Q12H [facility] Last Admin: 12/16/16 05:43 Dose: 40 mg Ondansetron HCl (Zofran) 4 mg IV ONETIME ONE Stop: 12/13/16 10:57 Last Admin: 12/13/16 11:01 Dose: 4 mg Sodium Chloride (Saline Flush) 10 ml FLUSH ASDIRECTED PRN PRN Reason: Keep Vein Open Tamoxifen Citrate (Nolvadex) 20 mg PO DAILY [facility] Last Admin: 12/15/16 09:08 Dose: 20 mg *Q Meaningful Use (DIS) - VTE *Q VTE Criteria *Q: - Stroke *Q Stroke Criteria *Q: - AMI *Q AMI Criteria *Q:
[2016-12-18 11:38] VITALS: BP 126/43
[2016-12-19] MEDS ORDERED: Iron Polysaccharides Complex 150 MG Cap PO SCH (09:00)
--- NOTE | 2016-12-19 10:51 | EKG ---
12/13/2016- REECE GOULD - EKG per my reading shows sinus rhythm with tachycardia at the rate of [address]ressions. [facility] /[id number]
== END 2016-12-18 11:50 | disposition home health service (06) | DRG 191 ==
LOC: DL.ED 10:30 → UNDOADMIN 12:32 → DL.MS 12:32
PROVIDERS: ADMIT Internal Medicine; ATTEND Internal Medicine
DX: J44.1 Chronic obstructive pulmonary disease with (acute) exacerbation (principal); R09.02 Hypoxemia; K92.2 Gastrointestinal hemorrhage, unspecified; Z99.81 Dependence on supplemental oxygen; Z85.3 Personal history of malignant neoplasm of breast; Z79.52 Long term (current) use of systemic steroids; Z87.891 Personal history of nicotine dependence; C50.412 Malignant neoplasm of upper-outer quadrant of left female breast
CPT/HCPCS: 36415; 71020; 80053; 82728; 83540; 83550; 83605; 83880; 84484; 85025; 86300; 87040 ×2; 93005; 93010; 96374; 96375; 99284; 99285; J2405; J2930; J7050; 80048; 81001; 85018; 87086; 94640; 97116-GP; 97161-GP; A9270-GY; J0456; J1644; J2920; J7620-GY

== ENCOUNTER → 2018-08-24 | Outpatient (CLI) | payer MEDICARE ==
[2018-08-24 10:22] LABS: CHLORIDE,CL 94 mmol/L (101-111); SODIUM,NA 137 mmol/L (135-145)
== END ==
LOC: DL.LAB 09:41
PROVIDERS: ATTEND Internal Medicine Hematology & Oncology
DX: C50.412 Malignant neoplasm of upper-outer quadrant of left female breast (principal); D50.9 Iron deficiency anemia, unspecified
CPT/HCPCS: 36415; 80053; 82728; 83540; 83550; 85025

== ENCOUNTER 2019-01-30 08:04 | Emergency (ER) | payer MEDICARE ==
[2019-01-30 08:20] VITALS: BP 141/46
[2019-01-30 08:57] LABS: ANION GAP 14.9; CHLORIDE,CL 92 mmol/L (101-111); SODIUM,NA 136 mmol/L (135-145)
[2019-01-30] MEDS ORDERED: LORazepam 2 MG/ML Syringe IVPUSH ONE (10:19)
--- NOTE | 2019-01-30 10:19 | CR ---
EXAMINATION: Abdomen 1V Flat SEX: Female AGE: 83 years CLINICAL HISTORY: 83-year-old female with abdominal pain, shortness of breath, and tiny lung nodules (CXR). INTERPRETATION: 1. 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 AP pelvis and hips unremarkable. 2. Punctate calcification RUQ appears to overlying the right renal hilus but could be in gallbladder or vascular calcification. 3. The liver appears to be enlarged and recommend contrast-enhanced CT exam abdomen. 4. No other abdominal soft tissue mass lesion or signs of mechanical bowel obstruction. 5. Arteriovascular calcifications. 6. Lung bases clear. CONCLUSION: Apparent hepatomegaly (CT follow-up recommended). Possible nephrolithiasis versus cholelithiasis (RUQ)
--- NOTE | 2019-01-30 10:20 | EDM.PDOC ---
ED HPI GENERAL MEDICAL PROBLEM - General Chief Complaint: Abdominal Pain Stated Complaint: UNKNOWN Time Seen by Provider: 01/30/19 08:10 Source of Information: Reports: Patient History Limitations: Reports: No Limitations - History of Present Illness INITIAL COMMENTS - FREE TEXT/NARRATIVE: ED with lower abdominal pain pressure, feels some constipation past couple of days, usually not problematic, Dizzy this morning getting out of bed, Oxygen dependent at home this am with oxygen EMS noted initial sats 77% increased to 96 on 4l No nausea or vomiting, Poor appetite, Family in home assisting with 24 hour care. Sever COPD. Family notes increasing worry and anxiety Abdomen Pain Score (Numeric/FACES): 2 - Related Data Allergies Allergy/AdvReac Type Severity Reaction Status Date / Time No Known Allergies Allergy Verified 12/13/16 12:46 Home Meds: Home Meds Albuterol/Ipratropium [DuoNeb 3.0-0.5 MG/3 ML] 3 ml NEB QID 08/12/15 [History] Lutein/Minerals/Vit A,C & E [Ocuvite] 1 tab PO DAILY 08/12/15 [History] predniSONE [Prednisone] 2.5 mg PO DAILY 08/12/15 [History] Amoxicillin/Clavulanate K [Augmentin 500 MG\125 MG] 1 tab PO Q8HR #15 tablet 12/27 [Rx] Budesonide [Pulmicort] 0.5 mg NEB BIDRT #60 neb 12/18/16 [Rx] Iron Polysaccharides Complex [Ferrex 150] 150 mg PO DAILY #30 cap 12/18/16 [Rx] Prednisone [IJD: predniSONE] 40 mg PO WITHBREAKFAST #6 tablet 12/18/16 [Rx] Past Medical History HEENT History: Reports: Cataract, Impaired Vision Other HEENT History: wears glasses Cardiovascular History: Reports: SOB on Exertion Respiratory History: Reports: COPD, Pneumonia, Recurrent, SOB Other Respiratory History: wears O2 all the time Gastrointestinal History: Reports: None Genitourinary History: Reports: None EXCELLENCE SPECIALIST History: Reports: Musculoskeletal History: Reports: None Neurological History: Reports: None Psychiatric History: Reports: None Endocrine/Metabolic History: Reports: None Hematologic History: Reports: Anemia Immunologic History: Reports: None Oncologic (Cancer) History: Reports: Breast Other Oncologic History: left breast Dermatologic History: Reports: None - Infectious Disease History Infectious Disease History: Reports: Chicken Pox, Measles, Mumps - Past Surgical History Head Surgeries/Procedures: Reports: None HEENT Surgical History: Reports: Tonsillectomy Female Surgical History: Reports: Breast Biopsy Social & Family History - Family History Family Medical History: Noncontributory Cardiac: Reports: CAD Endocrine/Metabolic: Reports: Diabetes, type II - Tobacco Use Smoking Status *Q: Former Smoker Used Tobacco, but Quit: Yes Month/Year Tobacco Last Used: 06/2008 - Caffeine Use Caffeine Use: Reports: Coffee - Recreational Drug Use Recreational Drug Use: No - Living Situation & Occupation Living situation: Reports: , Alone Occupation: Retired ED ROS GENERAL - Review of Systems Review Of Systems: See Below Constitutional: Reports: Malaise, Weakness, Decreased Appetite, Weight Loss (89 # 2-3 days ago, 86# this am). Denies: Fever, Chills HEENT: Reports: No Symptoms, Glasses Respiratory: Reports: Shortness of Breath (chronic). Denies: Cough Cardiovascular: Reports: Lightheadedness Endocrine: Reports: No Symptoms GI/Abdominal: Reports: Abdominal Pain, Constipation : Reports: Incontinence Musculoskeletal: Reports: No Symptoms Skin: Reports: No Symptoms Neurological: Reports: No Symptoms Psychiatric: Reports: Anxiety ED EXAM, GI/ABD - Physical Exam Exam: See Below Exam Limited By: No Limitations General Appearance: Alert, Cachetic Eyes: Bilateral: EOMI Ears: Normal External Exam, Hearing Grossly Normal Nose: Normal Inspection Throat/Mouth: Normal Inspection, Normal Lips, Normal Voice, No Airway Compromise Neck: Normal Inspection Respiratory/Chest: No Respiratory Distress, Decreased Breath Sounds, Other ( barrel chest) Cardiovascular: Normal Peripheral Pulses, Regular Rate, Rhythm GI/Abdominal Exam: Normal Bowel Sounds, Soft, Tender (lower). No: Distended Rectal (Female) Exam: Normal Rectal Tone, Heme + Stool. No: Hemorrhoids Extremities: Normal Inspection Neurological: Alert, Oriented Psychiatric: Anxious (mild) Skin Exam: Warm, Dry, Intact, Pallor Course - Vital Signs Last Recorded V/S: Last Vital Signs Temp 97.2 F 01/30/19 08:09 Pulse 98 01/30/19 10:41 Resp 20 01/30/19 08:09 BP 141/46 H 01/30/19 08:09 Pulse Ox 96 01/30/19 08:09 - Orders/Labs/Meds Orders: Active Orders 24 hr Category Date Time Status EKG 12 Lead [EKG Documentation Completion] [RC] URGENT Care 01/30/19 08:03 Active RT Aerosol Therapy [RC] ASDIRECTED Care 01/30/19 10:30 Active CULTURE BLOOD [BC] Stat Lab 01/30/19 08:26 Received Labs: Laboratory Tests 01/30/19 01/30/19 01/30/19 Range/Units 08:26 08:26 08:26 WBC 11.1 H (5.0-10.0) 10^3/uL RBC 3.50 L (4.2-5.4) 10^6/uL Hgb 10.8 L (12.0-16.0) g/dL Hct 34.7 L (37.0-47.0) % MCV 99.1 (80-100) fL MCH 30.9 (27.0-34.0) pg MCHC 31.1 L (33.0-35.0) g/dL Plt Count 405 (150-450) 10^3/uL Neut % (Auto) 78.8 H (42.2-75.2) % Lymph % (Auto) 8.9 L (20.5-50.1) % [place] % (Auto) 9.2 H (2-8) % Eos % (Auto) 2.7 (1.0-3.0) % Baso % (Auto) 0.4 (0.0-1.0) % Sodium 136 (135-145) mmol/L Potassium 3.9 (3.6-5.0) mmol/L Chloride 92 L (101-111) mmol/L Carbon Dioxide 33.0 H (21.0-31.0) mmol/L Anion Gap 14.9 BUN 12 (7-18) mg/dL Creatinine 0.7 (0.6-1.3) mg/dL Est Cr Clr Drug Dosing 38.29 mL/min Estimated GFR (MDRD) > 60 BUN/Creatinine Ratio 17.14 Glucose 103 (74-105) mg/dL Lactic Acid 1.0 (0.5-2.2) mmol/L Calcium 8.8 (8.4-10.2) mg/dl Total Bilirubin 0.4 (0.2-1.0) mg/dL AST 95 H (10-42) IU/L ALT 28 (10-60) IU/L Alkaline Phosphatase 201 H (42-121) IU/L Troponin I 0.03 H* (0.00-0.02) ng/ml B-Natriuretic Peptide 244 H (0-100) pg/ml Total Protein 6.7 (6.7-8.2) g/dl Albumin 3.0 L (3.2-5.5) g/dl Globulin 3.7 Albumin/Globulin Ratio 0.81 Amylase 59 (28-100) U/L Lipase 32 (22-51) U/L Urine Color (YELLOW) Urine Appearance (CLEAR) Urine pH (5.0-9.0) Ur Specific [place] (1.005-1.030) Urine Protein (NEGATIVE) Urine Glucose (UA) (NEGATIVE) Urine Ketones (NEGATIVE) Urine Occult Blood (NEGATIVE) Urine Nitrite (NEGATIVE) Urine Bilirubin (NEGATIVE) Urine Urobilinogen (0.2-1.0) mg/dL Ur Leukocyte Esterase (NEGATIVE) 01/30/19 Range/Units 08:45 WBC (5.0-10.0) 10^3/uL RBC (4.2-5.4) 10^6/uL Hgb (12.0-16.0) g/dL Hct (37.0-47.0) % MCV (80-100) fL MCH (27.0-34.0) pg MCHC (33.0-35.0) g/dL Plt Count (150-450) 10^3/uL Neut % (Auto) (42.2-75.2) % Lymph % (Auto) (20.5-50.1) % [place] % (Auto) (2-8) % Eos % (Auto) (1.0-3.0) % Baso % (Auto) (0.0-1.0) % Sodium (135-145) mmol/L Potassium (3.6-5.0) mmol/L Chloride (101-111) mmol/L Carbon Dioxide (21.0-31.0) mmol/L Anion Gap BUN (7-18) mg/dL Creatinine (0.6-1.3) mg/dL Est Cr Clr Drug Dosing mL/min Estimated GFR (MDRD) BUN/Creatinine Ratio Glucose (74-105) mg/dL Lactic Acid (0.5-2.2) mmol/L Calcium (8.4-10.2) mg/dl Total Bilirubin (0.2-1.0) mg/dL AST (10-42) IU/L ALT (10-60) IU/L Alkaline Phosphatase (42-121) IU/L Troponin I (0.00-0.02) ng/ml B-Natriuretic Peptide (0-100) pg/ml Total Protein (6.7-8.2) g/dl Albumin (3.2-5.5) g/dl Globulin Albumin/Globulin Ratio Amylase (28-100) U/L Lipase (22-51) U/L Urine Color Yellow (YELLOW) Urine Appearance Clear (CLEAR) Urine pH 7.5 (5.0-9.0) Ur Specific [place] 1.015 (1.005-1.030) Urine Protein Negative (NEGATIVE) Urine Glucose (UA) Negative (NEGATIVE) Urine Ketones Negative (NEGATIVE) Urine Occult Blood Negative (NEGATIVE) Urine Nitrite Negative (NEGATIVE) Urine Bilirubin Negative (NEGATIVE) Urine Urobilinogen 0.2 (0.2-1.0) mg/dL Ur Leukocyte Esterase Negative (NEGATIVE) Meds: Medications Discontinued Medications Generic Name Dose Route Start Last Admin Trade Name Freq PRN Reason Stop Dose Admin Albuterol 2.5 mg 01/30/19 10:29 01/30/19 10:41 Proventil Neb Soln NEB 01/30/19 10:30 2.5 mg ONETIME ONE Administration Lorazepam 0.5 mg 01/30/19 10:19 01/30/19 10:32 Ativan IVPUSH 01/30/19 10:20 2 mg ONETIME ONE Administration Senna/Docusate Sodium 2 tab 01/30/19 12:08 01/30/19 13:01 Senna Plus PO 01/30/19 12:09 Not Given ONETIME ONE - Radiology Interpretation Free Text/Narrative:: CXR no pneumonia, new lung nodule Abdomen no obstruction, see reports. - Re-Assessments/Exams Free Text/Narrative Re-Assessment/Exam: 01/30/19 10:27 Family at bedside. Previous records note scheduling for clinic/home care visit to discuss Hospice Option, Patient declined. Stating wanted to continue ablility for hospitalization,clinic visits and to continue medications. Dr Boston Egan accepting patient 01/30/19 12:17 Family and patient have changed decision, No desire home and hospice. Hospice to come in am , Assessment done previously. Ativan earlier for anxiety, patient mild confusion though family reports has periods similarly prior to administration. currently on Lactulose for constipation, was switched form Miralax. Initially worked but recently not. 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 Family hesitant to take home feeling overwhelmed with care, though cares have not significantly changed. Departure - Departure Time of Disposition: 12:25 Disposition: Home, Self-Care 01 Condition: Good Clinical Impression: Hypoxia, Heme positive stool, Anxiety COPD (chronic obstructive pulmonary disease) Qualifiers: COPD type: chronic bronchitis Chronic bronchitis type: unspecified Qualified Code(s): J42 - Unspecified chronic bronchitis Abdominal pain Qualifiers: Abdominal location: lower abdomen, unspecified Qualified Code(s): R10.30 - Lower abdominal pain, unspecified - Discharge Information *PRESCRIPTION DRUG MONITORING PROGRAM REVIEWED*: Not Applicable *COPY OF PRESCRIPTION DRUG MONITORING REPORT IN PATIENT MAX: Not Applicable Instructions: Constipation, Adult, [id number], Gastrointestinal Bleeding, [id number] Referrals: PCP,None [Primary Care Provider] - Forms: ED Department Discharge Additional Instructions: Diet as tolerated Ativan ).5mg one every 6 hours as needed ( written per Per Dr Gonzalez) Roxanol liquid per label instructions ( written per Dr Gonzalez) Increase lactulose 15ml twice daily for constipation Hospice in am as scheduled - My Orders Last 24 Hours: My Active Orders 01/30/19 08:03 EKG 12 Lead [EKG Documentation Completion] [RC] URGENT 01/30/19 08:26 CULTURE BLOOD [BC] Stat 01/30/19 10:30 RT Aerosol Therapy [RC] ASDIRECTED - Assessment/Plan Last 24 Hours: My Active Orders 01/30/19 08:03 EKG 12 Lead [EKG Documentation Completion] [RC] URGENT 01/30/19 08:26 CULTURE BLOOD [BC] Stat 01/30/19 10:30 RT Aerosol Therapy [RC] ASDIRECTED
--- NOTE | 2019-01-30 10:20 | CR ---
EXAMINATION: Chest 1V Frontal SEX: Female AGE: 83 years CLINICAL HISTORY: 83-year-old female complaining of abdominal pain and SOB. INTERPRETATION: 1. Hiatus hernia lower middle mediastinum as noted on previous exam 13 December 2016. 2. Chronic interstitial pattern. 3. Normal cardiac silhouette without alveolar edema or dependent effusion. 4. *Tiny new nodular densities right lower lobe and lingula on the left. 5. No other new lung mass, hilar lymphadenopathy or focal lobar pneumonia. CONCLUSION: Subtle new nodular densities (see above). No sign of heart failure or lobar pneumonia.
[2019-01-30] MEDS ORDERED: Albuterol 0.083% 2.5 MG/3 ML Neb Soln NEB ONE (10:29)
[2019-01-30 10:43] VITALS: PULSE 98
== END 2019-01-30 12:48 | disposition home or self-care (01) ==
LOC: DL.ED 08:04
DX: R10.30 Lower abdominal pain, unspecified (principal); R19.5 Other fecal abnormalities; J42 Unspecified chronic bronchitis; R09.02 Hypoxemia; F41.9 Anxiety disorder, unspecified; D64.9 Anemia, unspecified; Z87.891 Personal history of nicotine dependence; Z79.899 Other long term (current) drug therapy
CPT/HCPCS: 36415; 71045; 74018; 80053; 81003; 82150; 82272; 83605; 83690; 83880; 84484; 85025; 87040; 93005; 94640; 96374; 99285; J2060; J7613-GY

== ENCOUNTER 2019-03-22 11:10 | Inpatient (IN) | payer MEDICAID, MEDICARE ==
[2019-03-22] MEDS ORDERED: Ondansetron 4 MG/2 ML SDV IV ONE (11:14)
[2019-03-22] MEDS ORDERED: fentaNYL 100 MCG/2 ML SDV IVPUSH ONE ×2 (11:14→12:05)
--- NOTE | 2019-03-22 12:14 | EDM.PDOC ---
Scribed by Trinidad Lopez 03/22/19 1212 for Singh Armstrong MD ED HPI GENERAL MEDICAL PROBLEM - General Chief Complaint: Lower Extremity Injury/Pain Stated Complaint: AMBULANCE, FALL Time Seen by Provider: 03/22/19 11:10 Source of Information: Reports: Patient, EMS, EMS Notes Reviewed, RN, RN Notes Reviewed History Limitations: Reports: No Limitations - History of Present Illness INITIAL COMMENTS - FREE TEXT/NARRATIVE: Patient presents to ER by [facility] with complaint of that she fell at home on her right hip. She denies any other injuries. No loss of consciousness. Patient is under Hospice Care for metastatic breast cancer. Onset: Today Duration: Constant Location: Reports: Lower Extremity, Right Quality: Reports: Ache Severity: Severe Improves with: Reports: None Worsens with: Reports: None Associated Symptoms: Reports: No Other Symptoms Right Hip Pain Score (Numeric/FACES): 8 - Related Data Allergies Allergy/AdvReac Type Severity Reaction Status Date / Time No Known Allergies Allergy Verified 03/22/19 11:38 Home Meds: Home Meds Albuterol/Ipratropium [DuoNeb 3.0-0.5 MG/3 ML] 3 ml NEB QID 08/12/15 [History] Lutein/Minerals/Vit A,C & E [Ocuvite] 1 tab PO DAILY 08/12/15 [History] predniSONE [Prednisone] 2.5 mg PO DAILY 08/12/15 [History] Budesonide [Pulmicort] 0.5 mg NEB BIDRT #60 neb 12/18/16 [Rx] Furosemide 20 mg PO DAILY 03/22/19 [History] LORazepam 0.5 mg PO Q4H 03/22/19 [History] Lactulose 15 ml PO BID 03/22/19 [History] Morphine Sulfate [Morphine Sulfate ER] 5 mg PO Q4H PRN 03/22/19 [History] Ondansetron [Ondansetron ODT] 8 mg PO Q8H PRN 03/22/19 [History] Past Medical History HEENT History: Reports: Cataract, Impaired Vision Other HEENT History: wears glasses Cardiovascular History: Reports: SOB on Exertion Respiratory History: Reports: COPD, Pneumonia, Recurrent, SOB Other Respiratory History: wears O2 all the time Gastrointestinal History: Reports: None Genitourinary History: Reports: None 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: Musculoskeletal History: Reports: None Neurological History: Reports: None Psychiatric History: Reports: None Endocrine/Metabolic History: Reports: None Hematologic History: Reports: Anemia Immunologic History: Reports: None Oncologic (Cancer) History: Reports: Breast Other Oncologic History: left breast Dermatologic History: Reports: None - Infectious Disease History Infectious Disease History: Reports: Chicken Pox, Measles, Mumps - Past Surgical History Head Surgeries/Procedures: Reports: None HEENT Surgical History: Reports: Tonsillectomy Female Surgical History: Reports: Breast Biopsy Social & Family History - Family History Family Medical History: Noncontributory Cardiac: Reports: CAD Endocrine/Metabolic: Reports: Diabetes, type II - Caffeine Use Caffeine Use: Reports: Coffee - Living Situation & Occupation Living situation: Reports: , Alone Occupation: Retired Review of Systems - Review of Systems Review Of Systems: ROS reveals no pertinent complaints other than HPI. ED EXAM, GENERAL - Physical Exam Exam: See Below Exam Limited By: No Limitations General Appearance: Alert, Thin, Cachetic, Other (Chronically ill appearing) Eye Exam: Bilateral Eye: Normal Inspection Nose: Normal Inspection Throat/Mouth: Normal Inspection, Normal Lips, Normal Voice, No Airway Compromise Head: Atraumatic, Normocephalic Neck: Normal Inspection, Non-Tender, Full Range of Motion Respiratory/Chest: No Respiratory Distress, No Accessory Muscle Use, Decreased Breath Sounds, Other (coarse breath sounds) Cardiovascular: Regular Rate, Rhythm GI/Abdominal: Normal Bowel Sounds, Soft, Non-Tender Extremities: Other (Rt lower extremity is shortened and externally rotated, with acute Rt hip tenderness) Neurological: Alert, Oriented Psychiatric: Normal Mood Skin Exam: Warm, Dry Course - Vital Signs Last Recorded V/S: Last Vital Signs Temp 97.6 F 03/22/19 11:20 Pulse 98 03/22/19 11:20 Resp 18 03/22/19 11:20 BP 134/52 L 03/22/19 11:20 Pulse Ox 95 03/22/19 11:20 - Orders/Labs/Meds Orders: Active Orders 24 hr Category Date Time Status Chavez Catheter Insertion [Insert Urinary Catheter] [OM. Care 03/22/19 12:06 Ordered PC] Stat Urinary Catheter Assessment [RC] ASDIRECTED Care 03/22/19 12:06 Active Meds: Medications Discontinued Medications Generic Name Dose Route Start Last Admin Trade Name Mitra PRN Reason Stop Dose Admin Fentanyl 25 mcg 03/22/19 11:14 03/22/19 11:22 Sublimaze IVPUSH 03/22/19 11:15 25 mcg ONETIME ONE Administration Fentanyl 25 mcg 03/22/19 12:05 Sublimaze IVPUSH 03/22/19 12:06 ONETIME ONE Ondansetron HCl 4 mg 03/22/19 11:14 03/22/19 11:22 Zofran IV 03/22/19 11:15 4 mg ONETIME ONE Administration - Re-Assessments/Exams Free Text/Narrative Re-Assessment/Exam: 03/22/19 12:[address] Garland via [employer]. He agrees the pt is not a surgical candidate and admitting the pt locally to continue comfort care is reasonable. The pt and her daughter wish to be admitted here, and in fact flatly refuse transfer as they do not wish to consider any surgical repair or to have any specialty consults. Pt will be admitted to Dr. Gregory. Departure - Departure Time of Disposition: 12:11 (admitted to Dr. Gregory) Disposition: Admitted As Inpatient 67 Condition: Serious Clinical Impression: End stage chronic obstructive pulmonary disease, Metastatic breast cancer Closed right hip fracture Qualifiers: Encounter type: initial encounter Qualified Code(s): S72.001A - Fracture of unspecified part of neck of right femur, initial encounter for closed fracture Chronic respiratory failure Qualifiers: Respiratory failure complication: hypoxia Qualified Code(s): J96.11 - Chronic respiratory failure with hypoxia - Discharge Information *PRESCRIPTION DRUG MONITORING PROGRAM REVIEWED*: No *COPY OF PRESCRIPTION DRUG MONITORING REPORT IN PATIENT MAX: No Forms: ED Department Discharge - My Orders Last 24 Hours: My Active Orders 03/22/19 12:06 Chavez Catheter Insertion [Insert Urinary Catheter] [OM.PC] Stat Urinary Catheter Assessment [RC] ASDIRECTED - Assessment/Plan Last 24 Hours: My Active Orders 03/22/19 12:06 Chavez Catheter Insertion [Insert Urinary Catheter] [OM.PC] Stat Urinary Catheter Assessment [RC] ASDIRECTED I have read and agree with the documentation that has been completed regarding this visit. By signing this record, I attest that the documentation was completed in my physical presence and is an accurate record of the encounter.
[2019-03-22] MEDS ORDERED: Zolpidem 5 MG Tab PO PRN (13:15)
--- NOTE | 2019-03-22 13:22 | PCM.HP ---
H&P History of Present Illness - General Date of Service: 03/22/19 Admit Problem/Dx: Admission Diagnosis/Problem Admission Diagnosis/Problem Hip injury Source of Information: Patient, Family, Provider - History of Present Illness Initial Comments - Free Text/Narative: 83-year-old with a history of breast cancer. Has a history of severe oxygen- dependent COPD. The patient has been on hospice at home. The patient fell while she was trying to transition from chair to bed. developed significant right hip pain The pain is severe, worse with movements, better with not moving. No associated loss of consciousness Right Hip Pain Score (Numeric/FACES): 8 - Related Data Allergies/Adverse Reactions: Allergies Allergy/AdvReac Type Severity Reaction Status Date / Time No Known Allergies Allergy Verified 03/22/19 13:01 Home Medications: Home Meds Albuterol/Ipratropium [DuoNeb 3.0-0.5 MG/3 ML] 3 ml NEB QID 08/12/15 [History] Lutein/Minerals/Vit A,C & E [Ocuvite] 1 tab PO DAILY 08/12/15 [History] predniSONE [Prednisone] 2.5 mg PO DAILY 08/12/15 [History] Budesonide [Pulmicort] 0.5 mg NEB BIDRT #60 neb 12/18/16 [Rx] Acetaminophen 1,000 mg PO Q6HR PRN 03/22/19 [History] Bisacodyl [Dulcolax] 10 mg RECTAL DAILY PRN 03/22/19 [History] Furosemide 20 mg PO DAILY 03/22/19 [History] LORazepam 0.5 mg PO Q6HR PRN 03/22/19 [History] Lactulose 15 ml PO BID 03/22/19 [History] Morphine Sulfate [Morphine Sulfate ER] 5 mg PO Q4H PRN 03/22/19 [History] Ondansetron [Ondansetron ODT] 8 mg PO Q8H PRN 03/22/19 [History] Past Medical History HEENT History: Reports: Cataract, Impaired Vision Other HEENT History: wears glasses Cardiovascular History: Reports: SOB on Exertion Respiratory History: Reports: COPD, Pneumonia, Recurrent, SOB Other Respiratory History: wears O2 all the time Gastrointestinal History: Reports: None Genitourinary History: Reports: None 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: Musculoskeletal History: Reports: None Neurological History: Reports: None Psychiatric History: Reports: None Endocrine/Metabolic History: Reports: None Hematologic History: Reports: Anemia Immunologic History: Reports: None Oncologic (Cancer) History: Reports: Breast Other Oncologic History: left breast Dermatologic History: Reports: None - Infectious Disease History Infectious Disease History: Reports: Chicken Pox, Measles, Mumps - Past Surgical History Head Surgeries/Procedures: Reports: None HEENT Surgical History: Reports: Tonsillectomy Female Surgical History: Reports: Breast Biopsy Social & Family History - Family History Family Medical History: Noncontributory Cardiac: Reports: CAD Endocrine/Metabolic: Reports: Diabetes, type II - Tobacco Use Smoking Status *Q: Never Smoker Used Tobacco, but Quit: Yes Month/Year Tobacco Last Used: 1989 Second Hand Smoke Exposure: No - Caffeine Use Caffeine Use: Reports: Coffee, Tea - Recreational Drug Use Recreational Drug Use: No - Living Situation & Occupation Living situation: Reports: , Alone Occupation: Retired H&P Review of Systems - Review of Systems: Review Of Systems: See Below General: Denies: Fever, Chills Pulmonary: Reports: Shortness of Breath (Chronic) Cardiovascular: Denies: Chest Pain Gastrointestinal: Denies: Abdominal Pain Genitourinary: Denies: Dysuria Exam - Exam Exam: See Below - Vital Signs Vital Signs: Last Vital Signs Temp 36.9 C 03/22/19 13:02 Pulse 103 H 03/22/19 13:02 Resp 20 03/22/19 13:02 BP 137/52 L 03/22/19 13:02 Pulse Ox 95 03/22/19 13:02 Weight: 40.869 kg - Exam General: Alert, Oriented, Other (Cachectic) Neck: Supple Lungs: Normal Respiratory Effort, Decreased Breath Sounds Cardiovascular: Regular Rate, Regular Rhythm GI/Abdominal Exam: Normal Bowel Sounds, Soft, Non-Tender Extremities: Pedal Edema (1+ bilateral) - Problem List (1) Chronic respiratory failure SNOMED Code(s): 16907249 ICD Code: J96.10 - CHRONIC RESPIRATORY FAILURE, UNSP W HYPOXIA OR HYPERCAPNIA Status: Acute Current Visit: Yes Qualifiers: Respiratory failure complication: hypoxia Qualified Code(s): J96.11 - Chronic respiratory failure with hypoxia (2) Closed right hip fracture SNOMED Code(s): 762769187 ICD Code: S72.001A - FRACTURE OF UNSP PART OF NECK OF RIGHT FEMUR, INIT Status: Acute Current Visit: Yes Qualifiers: Encounter type: initial encounter Qualified Code(s): S72.001A - Fracture of unspecified part of neck of right femur, initial encounter for closed fracture (3) Metastatic breast cancer SNOMED Code(s): 991998583, 089468194 ICD Code: C50.919 - MALIGNANT NEOPLASM OF UNSP SITE OF UNSPECIFIED FEMALE BREAST Status: Acute Current Visit: Yes Problem List Initiated/Reviewed/Updated: Yes Orders Last 24hrs: Active Orders 24 hr Category Date Time Status Admission Diagnosis [ADT] Routine ADT 03/22/19 13:18 Ordered Admission Status [Patient Status] [ADT] Routine ADT 03/22/19 13:18 Active Chavez Catheter Insertion [Insert Urinary Catheter] [OM. Care 03/22/19 12:06 Ordered PC] Stat Urinary Catheter Assessment [RC] ASDIRECTED Care 03/22/19 12:06 Active Assessment/Plan Comment:: 83-year-old lady with a history of severe COPD, chronic hypoxemic respiratory failure, breast cancer. The patient has been on hospice at home Presented with the right hip fracture Given the patient's wishes of comfort care the patient is not a surgical candidate. The patient will be likely on bed rest for her rest of her life. For now admitthe patient to hospital for pain control. Will use IV fentanyl, oral morphine as needed Continue nebulizers and oxygen supplement for COPD and chronic hypoxemic respiratory failure Maintain Chavez catheter since any movement will cause significant pain Discussing with the patient and the patient's daughter who is the caregiver they both would like to try to return to home. Consult social work to help with arrangements of hospital bed and required assistive devices. If going home is not possible intermediate should be considered.
[2019-03-22] MEDS ORDERED: Bisacodyl 10 MG Supp RECTAL PRN (13:25)
[2019-03-22] MEDS ORDERED: LORazepam 0.5 MG Tab PO PRN (13:25)
[2019-03-22] MEDS ORDERED: Ondansetron 4 MG Tab.DIS PO PRN (13:45)
[2019-03-22] MEDS: Morphine 15 MG Tab PO PRN ×2 (13:53→18:43)
[2019-03-22] MEDS ORDERED: Albuterol/Ipratropium 3.0-0.5 MG/3 ML Neb Soln NEB PRN (15:27)
[2019-03-22] MEDS: Albuterol/Ipratropium 3.0-0.5 MG/3 ML Neb Soln NEB SCH ×2 (16:01→21:22)
[2019-03-22] MEDS: fentaNYL 100 MCG/2 ML SDV IVPUSH PRN (16:02)
[2019-03-22] MEDS: Budesonide 0.5 MG/2 ML Neb Susp NEB SCH (18:44)
[2019-03-22] MEDS: Lactulose Soln 10 GM/15 ML 30 ML UD Cup PO SCH (21:22)
[2019-03-23] MEDS: Albuterol/Ipratropium 3.0-0.5 MG/3 ML Neb Soln NEB SCH ×4 (07:46→20:42)
[2019-03-23] MEDS: Budesonide 0.5 MG/2 ML Neb Susp NEB SCH ×2 (07:50→17:36)
[2019-03-23] MEDS: Morphine 15 MG Tab PO PRN ×2 (08:14→12:21)
[2019-03-23] MEDS ORDERED: Lutein/Minerals/Vit A,C & E Tab PO SCH (09:00)
[2019-03-23] MEDS: fentaNYL 100 MCG/2 ML SDV IVPUSH PRN (09:30)
--- NOTE | 2019-03-23 10:30 | PCM.PN ---
- General Info Date of Service: 03/23/19 Admission Dx/Problem (Free Text): Admission Diagnosis/Problem Admission Diagnosis/Problem Hip injury Subjective Update: Admitted with right hip fracture with pain. The pain is in the right hip, nonradiating, sharp. Continues to have moderate to severe pain. The pain is worse when moving. Better with pain medications, had to use IV fentanyl when moving in bed. No associated nausea. Has no appetite. - Review of Systems General: Denies: Fever Pulmonary: Denies: Shortness of Breath Cardiovascular: Denies: Chest Pain Gastrointestinal: Denies: Abdominal Pain - Patient Data Vitals - Most Recent: Last Vital Signs Temp 37.5 C 03/23/19 07:51 Pulse 87 03/23/19 07:54 Resp 20 03/23/19 07:51 BP 127/99 H 03/23/19 07:51 Pulse Ox 90 L 03/23/19 07:54 Weight - Most Recent: 40.869 kg I&O - Last 24 Hours: Intake & Output 03/22/19 03/23/19 03/23/19 22:59 06:59 14:59 Intake Total 540 100 Output Total 350 250 Balance 190 -150 Med Orders - Current: Current Medications Albuterol/Ipratropium (Duoneb 3.0-0.5 Mg/3 Ml) 3 ml NEB QIDRT [facility] Last Admin: 03/23/19 07:46 Dose: 3 ml Albuterol/Ipratropium (Duoneb 3.0-0.5 Mg/3 Ml) 3 ml NEB Q2H PRN PRN Reason: sob Bisacodyl (Dulcolax) 10 mg RECTAL DAILY PRN PRN Reason: Constipation Budesonide (Pulmicort) 0.5 mg NEB BIDRT [facility] Last Admin: 03/23/19 07:50 Dose: 0.5 mg Fentanyl (Sublimaze) 25 mcg IVPUSH Q2H PRN PRN Reason: severe pain Last Admin: 03/23/19 09:30 Dose: 25 mcg Furosemide (Lasix) 20 mg PO DAILY RADHA Lactulose (Cephulac) 10 gm PO BID [facility] Last Admin: 03/22/19 21:22 Dose: Not Given Lidocaine (Lidoderm 5%) 700 mg TOP Q24H [facility] Lorazepam (Ativan) 0.5 mg PO Q6HR PRN PRN Reason: Anxiety Morphine Sulfate (Morphine) 7.5 mg PO Q4H PRN PRN Reason: moderate pain Last Admin: 03/23/19 08:14 Dose: 7.5 mg Multivitamins/Minerals (I-Vilma) 1 each PO DAILY [facility] Ondansetron HCl (Zofran Odt) 8 mg PO Q8H PRN PRN Reason: NAUSEA Prednisone (Prednisone) 2.5 mg PO DAILY [facility] Zolpidem Tartrate (Ambien) 5 mg PO BEDTIME PRN PRN Reason: Sleep Discontinued Medications Fentanyl (Sublimaze) 25 mcg IVPUSH ONETIME ONE Stop: 03/22/19 11:15 Last Admin: 03/22/19 11:22 Dose: 25 mcg Fentanyl (Sublimaze) 25 mcg IVPUSH ONETIME ONE Stop: 03/22/19 12:06 Last Admin: 03/22/19 12:14 Dose: 25 mcg Ondansetron HCl (Zofran) 4 mg IV ONETIME ONE Stop: 03/22/19 11:15 Last Admin: 03/22/19 11:22 Dose: 4 mg - Exam General: Alert, Oriented, Other (Cachectic) Lungs: Normal Respiratory Effort Extremities: No Pedal Edema - Problem List & Annotations (1) Chronic respiratory failure SNOMED Code(s): 42474475 Code(s): J96.10 - CHRONIC RESPIRATORY FAILURE, UNSP W HYPOXIA OR HYPERCAPNIA Status: Acute Current Visit: Yes Qualifiers: Respiratory failure complication: hypoxia Qualified Code(s): J96.11 - Chronic respiratory failure with hypoxia (2) Closed right hip fracture SNOMED Code(s): 284474592 Code(s): S72.001A - FRACTURE OF UNSP PART OF NECK OF RIGHT FEMUR, INIT Status: Acute Current Visit: Yes Qualifiers: Encounter type: initial encounter Qualified Code(s): S72.001A - Fracture of unspecified part of neck of right femur, initial encounter for closed fracture (3) Metastatic breast cancer SNOMED Code(s): 649387802, 875883021 Code(s): C50.919 - MALIGNANT NEOPLASM OF UNSP SITE OF UNSPECIFIED FEMALE BREAST Status: Acute Current Visit: Yes - Problem List Review Problem List Initiated/Reviewed/Updated: Yes - My Orders Last 24 Hours: My Active Orders 03/22/19 13:14 fentaNYL [Sublimaze] 25 mcg IVPUSH Q2H PRN 03/22/19 13:15 Patient Status [ADT] Routine Oxygen Therapy [RC] PRN VTE/DVT Education [RC] PER UNIT ROUTINE Vital Signs [RC] 08,20 Zolpidem [Ambien] 5 mg PO BEDTIME PRN Resuscitation Status Routine 03/22/19 13:18 Admission Status [Patient Status] [ADT] Routine 03/22/19 13:25 Bisacodyl [Dulcolax] 10 mg RECTAL DAILY PRN LORazepam [Ativan] 0.5 mg PO Q6HR PRN 03/22/19 13:37 Morphine 7.5 mg PO Q4H PRN 03/22/19 13:45 Ondansetron [Zofran ODT] 8 mg PO Q8H PRN 03/22/19 15:27 RT Aerosol Therapy [RC] ASDIRECTED Albuterol/Ipratropium [DuoNeb 3.0-0.5 MG/3 ML] 3 ml NEB Q2H PRN 03/22/19 17:00 Albuterol/Ipratropium [DuoNeb 3.0-0.5 MG/3 ML] 3 ml NEB QIDRT 03/22/19 18:00 Budesonide [Pulmicort] 0.5 mg NEB BIDRT 03/22/19 21:00 Lactulose [Cephulac] 10 gm PO BID 03/22/19 Dinner Regular Diet [DIET] 03/23/19 09:00 Furosemide [Lasix] 20 mg PO DAILY Lutein/Minerals/Vit A,C & E [I-Vilma] 1 each PO DAILY predniSONE 2.5 mg PO DAILY 03/23/19 09:05 Specialty Bed [OM.PC] Routine 03/23/19 10:30 Lidocaine 5% [Lidoderm 5%] 700 mg TOP Q24H - Plan Plan:: 83-year-old lady with a history of severe COPD, chronic hypoxemic respiratory failure, breast cancer. The patient has been on hospice at home due to breast cancer. Presented with the right hip fracture Given the patient's wishes of comfort care the patient is not a surgical candidate. The patient will be likely on bed rest for her rest of her life. We'll try to obtain hospital bed for home. Contact hospice Add Lidoderm patch for pain control Use oral morphine as needed Will use IV fentanyl in emergencies if nothing else works but try to maintain on an oral regimen Continue nebulizers and oxygen supplement for COPD and chronic hypoxemic respiratory failure Maintain Chavez catheter since any movement will cause significant pain Protein malnutrition Followed by dietary Discharge plan is home with help of family and QSP
[2019-03-23] MEDS: predniSONE 5 MG Tab PO SCH (12:08)
[2019-03-23] MEDS: Lactulose Soln 10 GM/15 ML 30 ML UD Cup PO SCH ×2 (12:08→20:36)
[2019-03-23] MEDS: Furosemide 20 MG Tab PO SCH (12:08)
[2019-03-23] MEDS: Lidocaine 5% 700 MG Patch TOP SCH (12:09)
[2019-03-23] MEDS: Sodium Chloride 0.9% 10 ML Syringe FLUSH PRN (21:54)
[2019-03-24] MEDS: Budesonide 0.5 MG/2 ML Neb Susp NEB SCH ×2 (07:15→17:54)
[2019-03-24] MEDS: Albuterol/Ipratropium 3.0-0.5 MG/3 ML Neb Soln NEB SCH ×4 (07:15→22:23)
[2019-03-24] MEDS: Morphine 15 MG Tab PO PRN (07:20)
[2019-03-24] MEDS: Lactulose Soln 10 GM/15 ML 30 ML UD Cup PO SCH ×4 (09:23→22:42)
[2019-03-24] MEDS: Furosemide 20 MG Tab PO SCH (09:24)
[2019-03-24] MEDS: predniSONE 5 MG Tab PO SCH (09:24)
[2019-03-24] MEDS: Lidocaine 5% 700 MG Patch TOP SCH (09:25)
[2019-03-24] MEDS: Sodium Chloride 0.9% 10 ML Syringe FLUSH PRN ×2 (09:33→22:40)
--- NOTE | 2019-03-24 10:35 | PCM.PN ---
- General Info Date of Service: 03/24/19 Admission Dx/Problem (Free Text): Admission Diagnosis/Problem Admission Diagnosis/Problem Hip injury Subjective Update: on comfort care with h/o breast ca, malnutrition, severe copd Admitted with right hip fracture with pain. The pain is in the right hip, nonradiating, sharp. Continues to have moderate to severe pain. The pain is worse when moving. Better with pain medications, trying not to use IV fentanyl. No associated nausea. Has no appetite. has constipation confused - Review of Systems General: Reports: Weakness. Denies: Fever Pulmonary: Reports: Shortness of Breath (chronic) Cardiovascular: Denies: Chest Pain Genitourinary: Denies: Dysuria Neurological: Reports: Confusion. Denies: Headache - Patient Data Vitals - Most Recent: Last Vital Signs Temp 37.0 C 03/24/19 07:54 Pulse 114 H 03/24/19 07:54 Resp 20 03/24/19 07:54 BP 133/42 L 03/24/19 07:54 Pulse Ox 90 L 03/24/19 07:54 Weight - Most Recent: 40.869 kg I&O - Last 24 Hours: Intake & Output 03/23/19 03/24/19 03/24/19 22:59 06:59 14:59 Intake Total 160 50 Output Total 350 100 Balance -190 -50 Med Orders - Current: Current Medications Albuterol/Ipratropium (Duoneb 3.0-0.5 Mg/3 Ml) 3 ml NEB QIDRT [facility] Last Admin: 03/24/19 07:15 Dose: 3 ml Albuterol/Ipratropium (Duoneb 3.0-0.5 Mg/3 Ml) 3 ml NEB Q2H PRN PRN Reason: sob Bisacodyl (Dulcolax) 10 mg RECTAL DAILY PRN PRN Reason: Constipation Budesonide (Pulmicort) 0.5 mg NEB BIDRT [facility] Last Admin: 03/24/19 07:15 Dose: 0.5 mg Fentanyl (Sublimaze) 25 mcg IVPUSH Q2H PRN PRN Reason: severe pain Last Admin: 03/23/19 09:30 Dose: 25 mcg Furosemide (Lasix) 20 mg PO DAILY [facility] Last Admin: 03/24/19 09:24 Dose: 20 mg Lactulose (Cephulac) 10 gm PO BID [facility] Last Admin: 03/24/19 09:23 Dose: 10 gm Lidocaine (Lidoderm 5%) 700 mg TOP DAILY [facility] Last Admin: 03/24/19 09:25 Dose: 700 mg Lorazepam (Ativan) 0.5 mg PO Q6HR PRN PRN Reason: Anxiety Miscellaneous Information (Remove Patch) 1 ea TRDERM BEDTIME [facility] Last Admin: 03/23/19 20:44 Dose: Not Given Morphine Sulfate (Morphine) 7.5 mg PO Q4H PRN PRN Reason: moderate pain Last Admin: 03/24/19 07:20 Dose: 7.5 mg Ondansetron HCl (Zofran Odt) 8 mg PO Q8H PRN PRN Reason: NAUSEA Prednisone (Prednisone) 2.5 mg PO DAILY [facility] Last Admin: 03/24/19 09:24 Dose: 2.5 mg Sodium Chloride (Saline Flush) 10 ml FLUSH ASDIRECTED PRN PRN Reason: Keep Vein Open Last Admin: 03/24/19 09:33 Dose: 10 ml Zolpidem Tartrate (Ambien) 5 mg PO BEDTIME PRN PRN Reason: Sleep Discontinued Medications Fentanyl (Sublimaze) 25 mcg IVPUSH ONETIME ONE Stop: 03/22/19 11:15 Last Admin: 03/22/19 11:22 Dose: 25 mcg Fentanyl (Sublimaze) 25 mcg IVPUSH ONETIME ONE Stop: 03/22/19 12:06 Last Admin: 03/22/19 12:14 Dose: 25 mcg Multivitamins/Minerals (I-Vilma) 1 each PO DAILY [facility] Last Admin: 03/23/19 11:15 Dose: Not Given Ondansetron HCl (Zofran) 4 mg IV ONETIME ONE Stop: 03/22/19 11:15 Last Admin: 03/22/19 11:22 Dose: 4 mg - Exam General: Alert, Oriented Neck: Supple Lungs: Normal Respiratory Effort, Decreased Breath Sounds Cardiovascular: Regular Rate, Regular Rhythm GI/Abdominal Exam: Normal Bowel Sounds, Soft, Non-Tender Extremities: No Pedal Edema - Problem List & Annotations (1) Chronic respiratory failure SNOMED Code(s): 41072830 Code(s): J96.10 - CHRONIC RESPIRATORY FAILURE, UNSP W HYPOXIA OR HYPERCAPNIA Status: Acute Current Visit: Yes Qualifiers: Respiratory failure complication: hypoxia Qualified Code(s): J96.11 - Chronic respiratory failure with hypoxia (2) Closed right hip fracture SNOMED Code(s): 495862087 Code(s): S72.001A - FRACTURE OF UNSP PART OF NECK OF RIGHT FEMUR, INIT Status: Acute Current Visit: Yes Qualifiers: Encounter type: initial encounter Qualified Code(s): S72.001A - Fracture of unspecified part of neck of right femur, initial encounter for closed fracture (3) Metastatic breast cancer SNOMED Code(s): 192978666, 745018166 Code(s): C50.919 - MALIGNANT NEOPLASM OF UNSP SITE OF UNSPECIFIED FEMALE BREAST Status: Acute Current Visit: Yes - Problem List Review Problem List Initiated/Reviewed/Updated: Yes - My Orders Last 24 Hours: My Active Orders 03/23/19 10:30 Lidocaine 5% [Lidoderm 5%] 700 mg TOP DAILY 03/23/19 21:00 Remove Patch 1 ea TRDERM BEDTIME 03/23/19 21:40 Sodium Chloride 0.9% [Saline Flush] 10 ml FLUSH ASDIRECTED PRN 03/24/19 21:00 Morphine [MS Contin] 15 mg PO Q12HR - Plan Plan:: 83-year-old lady with a history of severe COPD, chronic hypoxemic respiratory failure, breast cancer. The patient has been on hospice at home due to breast cancer, copd, malnutrition. Presented with the right hip fracture Given the patient's wishes of comfort care the patient is not a surgical candidate. The patient will be likely on bed rest for her rest of her life. We'll try to obtain hospital bed for home. Contacted hospice started Lidoderm patch for pain control Use oral morphine as needed add MScontin to PRN Morphine PO Will use IV fentanyl in emergencies if nothing else works but try to maintain on an oral regimen Continue nebulizers and oxygen supplement for COPD and chronic hypoxemic respiratory failure Maintain Chavez catheter since any movement will cause significant pain Protein malnutrition Followed by dietary constipation add lactulose Discharge plan is home with help of family and QSP
[2019-03-24] MEDS: Morphine 15 MG Tab.ER PO SCH ×2 (11:46→22:20)
[2019-03-24 19:22] VITALS: BP 126/41
[2019-03-25 07:59] VITALS: PULSE 106
[2019-03-25] MEDS: Furosemide 20 MG Tab PO SCH (08:56)
[2019-03-25] MEDS: Albuterol/Ipratropium 3.0-0.5 MG/3 ML Neb Soln NEB SCH ×2 (08:56→10:54)
[2019-03-25] MEDS: Budesonide 0.5 MG/2 ML Neb Susp NEB SCH (08:56)
[2019-03-25] MEDS: Lactulose Soln 10 GM/15 ML 30 ML UD Cup PO SCH (08:56)
[2019-03-25] MEDS: Morphine 15 MG Tab.ER PO SCH (08:56)
[2019-03-25] MEDS: predniSONE 5 MG Tab PO SCH (08:59)
[2019-03-25] MEDS: Lidocaine 5% 700 MG Patch TOP SCH (10:26)
--- NOTE | 2019-03-25 10:27 | PCM.DCSUM1 ---
Discharge Summary - Hospital Course Free Text/Narrative:: 83 yo. female with medical history significant for breast cancer, severe COPD on chronic O2 supplementation, and cachexia who was admitted for right hip fracture and decided to pursue hospice/comfort cares. Patient was admitted and pain medications were titrated. She was kept comfortable throughout hospitalization and is being discharged home to hospice. HPI Initial Comments: 83-year-old with a history of breast cancer. Has a history of severe oxygen- dependent COPD. The patient has been on hospice at home. The patient fell while she was trying to transition from chair to bed. developed significant right hip pain The pain is severe, worse with movements, better with not moving. No associated loss of consciousness Diagnosis: Stroke: No - Discharge Data Discharge Date: 03/25/19 Discharge Disposition: DC/Tfer to Hospice - Home 51 Condition: Poor - Referral to Home Health Primary Care Physician: PCP None - Discharge Plan *PRESCRIPTION DRUG MONITORING PROGRAM REVIEWED*: No *COPY OF PRESCRIPTION DRUG MONITORING REPORT IN PATIENT MAX: No Prescriptions/Med Rec: Lidocaine 5% [Lidoderm 5%] 1 patch TOP DAILY #5 patch Morphine [Morphine 10 MG/0.5 ML Oral Syringe] 5 mg PO Q4H PRN #5 syringe PRN Reason: Pain Morphine 7.5 mg PO Q4H PRN #6 tablet PRN Reason: moderate pain Ondansetron [Zofran ODT] 8 mg PO Q8H PRN #12 tab.dis PRN Reason: NAUSEA Home Medications: Home Meds Albuterol/Ipratropium [DuoNeb 3.0-0.5 MG/3 ML] 3 ml NEB QID 08/12/15 [History] predniSONE [Prednisone] 2.5 mg PO DAILY 08/12/15 [History] Budesonide [Pulmicort] 0.5 mg NEB BIDRT #60 neb 12/18/16 [Rx] Acetaminophen 1,000 mg PO Q6HR PRN 03/22/19 [History] Bisacodyl [Dulcolax] 10 mg RECTAL DAILY PRN 03/22/19 [History] LORazepam 0.5 mg PO Q6HR PRN 03/22/19 [History] Lactulose 15 ml PO BID 03/22/19 [History] Lidocaine 5% [Lidoderm 5%] 1 patch TOP DAILY #5 patch 03/25/19 [Rx] Morphine 7.5 mg PO Q4H PRN #6 tablet 03/25/19 [Rx] Morphine [Morphine 10 MG/0.5 ML Oral Syringe] 5 mg PO Q4H PRN #5 syringe [Rx] Ondansetron [Zofran ODT] 8 mg PO Q8H PRN #12 tab.dis 03/25/19 [Rx] Forms: ED Department Discharge Referrals: PCP,None [Primary Care Provider] - - Discharge Summary/Plan Comment DC Time >30 min.: Yes - General Info Date of Service: 03/25/19 Admission Dx/Problem (Free Text: Admission Diagnosis/Problem Admission Diagnosis/Problem Hip injury Subjective Update: No acute events overnight per nursing staff. Patient not verbalizing responses today. Afebrile overnight. Low urine output. Otherwise, no acute concerns. Functional Status: Reports: Pain Controlled - Review of Systems General: Reports: No Symptoms HEENT: Reports: No Symptoms, Post Nasal Drip Pulmonary: Reports: No Symptoms Cardiovascular: Reports: No Symptoms Gastrointestinal: Reports: No Symptoms Genitourinary: Reports: No Symptoms Musculoskeletal: Reports: No Symptoms Skin: Reports: No Symptoms Neurological: Reports: No Symptoms Psychiatric: Reports: No Symptoms Systems Review Comment: Patient not verbalizing responses. - Patient Data Vitals - Most Recent: Last Vital Signs Temp 98.5 F 03/25/19 07:58 Pulse 106 H 03/25/19 07:58 Resp 20 03/25/19 07:58 BP 126/41 L 03/25/19 07:58 Pulse Ox 92 L 03/25/19 07:58 Weight - Most Recent: 90 lb 1.6 oz I&O - Last 24 hours: Intake & Output 03/24/19 03/25/19 03/25/19 22:59 06:59 14:59 Output Total 75 60 Balance -75 -60 Med Orders - Current: Current Medications Albuterol/Ipratropium (Duoneb 3.0-0.5 Mg/3 Ml) 3 ml NEB QIDRT [facility] Last Admin: 03/25/19 08:56 Dose: Not Given Albuterol/Ipratropium (Duoneb 3.0-0.5 Mg/3 Ml) 3 ml NEB Q2H PRN PRN Reason: sob Bisacodyl (Dulcolax) 10 mg RECTAL DAILY PRN PRN Reason: Constipation Budesonide (Pulmicort) 0.5 mg NEB BIDRT [facility] Last Admin: 03/25/19 08:56 Dose: Not Given Fentanyl (Sublimaze) 25 mcg IVPUSH Q2H PRN PRN Reason: severe pain Last Admin: 03/23/19 09:30 Dose: 25 mcg Furosemide (Lasix) 20 mg PO DAILY [facility] Last Admin: 03/25/19 08:56 Dose: Not Given Lactulose (Cephulac) 10 gm PO BID [facility] Last Admin: 03/25/19 08:56 Dose: Not Given Lidocaine (Lidoderm 5%) 700 mg TOP DAILY [facility] Last Admin: 03/24/19 09:25 Dose: 700 mg Lorazepam (Ativan) 0.5 mg PO Q6HR PRN PRN Reason: Anxiety Miscellaneous Information (Remove Patch) 1 ea TRDERM BEDTIME [facility] Last Admin: 03/24/19 22:47 Dose: Not Given Morphine Sulfate (Morphine) 7.5 mg PO Q4H PRN PRN Reason: moderate pain Last Admin: 03/24/19 07:20 Dose: 7.5 mg Morphine Sulfate (Ms Contin) 15 mg PO Q12HR [facility] Last Admin: 03/25/19 08:56 Dose: Not Given Ondansetron HCl (Zofran Odt) 8 mg PO Q8H PRN PRN Reason: NAUSEA Prednisone (Prednisone) 2.5 mg PO DAILY [facility] Last Admin: 03/25/19 08:59 Dose: Not Given Senna/Docusate Sodium (Senna Plus) 1 tab PO BID [facility] Last Admin: 03/25/19 08:59 Dose: Not Given Sodium Chloride (Saline Flush) 10 ml FLUSH ASDIRECTED PRN PRN Reason: Keep Vein Open Last Admin: 03/24/19 22:40 Dose: 10 ml Zolpidem Tartrate (Ambien) 5 mg PO BEDTIME PRN PRN Reason: Sleep Discontinued Medications Fentanyl (Sublimaze) 25 mcg IVPUSH ONETIME ONE Stop: 03/22/19 11:15 Last Admin: 03/22/19 11:22 Dose: 25 mcg Fentanyl (Sublimaze) 25 mcg IVPUSH ONETIME ONE Stop: 03/22/19 12:06 Last Admin: 03/22/19 12:14 Dose: 25 mcg Lactulose (Cephulac) 20 gm PO Q6H [facility] Stop: 03/24/19 17:01 Last Admin: 03/24/19 17:18 Dose: Not Given Multivitamins/Minerals (I-Vilma) 1 each PO DAILY [facility] Last Admin: 03/23/19 11:15 Dose: Not Given Ondansetron HCl (Zofran) 4 mg IV ONETIME ONE Stop: 03/22/19 11:15 Last Admin: 03/22/19 11:22 Dose: 4 mg - Exam Quality Assessment: Reports: Supplemental Oxygen (via nasal cannula) General: Reports: Alert, No Acute Distress Lungs: Reports: Normal Respiratory Effort Skin: Reports: Warm, Dry Psy/Mental Status: Reports: Alert Physical Findings Comments:: Detailed physical exam deferred for patient's comfort
== END 2019-03-25 11:05 | disposition hospice, home (50) | DRG 536 ==
LOC: DL.ED 11:10 → UNDOADMIN 12:53 → DL.MS 12:53
PROVIDERS: ADMIT Internal Medicine; ATTEND Internal Medicine
DX: S72.001A Fracture of unspecified part of neck of right femur, initial encounter for closed fracture (principal); S72.011A Unspecified intracapsular fracture of right femur, initial encounter for closed fracture; J96.11 Chronic respiratory failure with hypoxia; E46 Unspecified protein-calorie malnutrition; Z68.1 Body mass index [BMI] 19.9 or less, adult; C79.9 Secondary malignant neoplasm of unspecified site; H54.7 Unspecified visual loss; R64 Cachexia; J44.9 Chronic obstructive pulmonary disease, unspecified; Z99.81 Dependence on supplemental oxygen; C50.919 Malignant neoplasm of unspecified site of unspecified female breast; Z79.52 Long term (current) use of systemic steroids; Z87.01 Personal history of pneumonia (recurrent); D64.9 Anemia, unspecified; M25.551 Pain in right hip; M79.604 Pain in right leg; K59.00 Constipation, unspecified; Z51.5 Encounter for palliative care; Z79.899 Other long term (current) drug therapy; Z98.49 Cataract extraction status, unspecified eye; W19.XXXA Unspecified fall, initial encounter
CPT/HCPCS: 51702; 72192; 96374; 96375; 96376; 99284; J2405; J3010 ×2; 94640; 94760; A9270-GY; J7620-GY